=== PATIENT | female | born 2000 | race Hispanic/Latino ===

== ENCOUNTER 2019-01-06 02:01 | Emergency (ER) | payer SELFPAY ==
[~2019-01-06] VITALS: Ht 154.9 cm; Wt 58.7 kg
--- OUTSIDE RECORDS SUMMARY | 2019-01-06 02:06 | XMS REPORT | Summary of Care ---
Author Author [facility] Organization [facility] Address Unknown Phone Unavailable Encounter HQ Iza(FIN) [id number] Date(s): 01/23/18 - 01/24/18 [facility] [address] [place] [address]- [phone] Encounter Diagnosis Acute UTI (Discharge Diagnosis) - 01/23/18 BV (bacterial vaginosis) (Discharge Diagnosis) - 01/23/18 Discharge Disposition: Home or Self Care Attending Physician: Ramiro Hernandez MD Vital Signs 1 2 3 Most recent to oldest [Reference Range]: 154.94 cm (01/23/18 6:14 PM) Height 98.1 DegF (01/23/18 10:11 PM) 97.8 DegF (01/23/18 6:14 PM) Temperature Oral [96.4-99.1 DegF] 110/72 mmHg (01/24/18 12:06 AM) 102/64 mmHg (01/23/18 10:11 PM) 106/70 mmHg (01/23/18 6:14 PM) Blood Pressure [90-140/60-90 mmHg] 18 BRMIN (01/24/18 12:06 AM) 18 BRMIN (01/23/18 10:11 PM) 18 BRMIN (01/23/18 6:14 PM) Respiratory Rate [14-20 BRMIN] 74 bpm (01/24/18 12:06 AM) 81 bpm (01/23/18 10:11 PM) 74 bpm (01/23/18 6:14 PM) Peripheral Pulse Rate [60-100 bpm] 51.364 kg (01/23/18 6:14 PM) Weight 21.4 m2 (01/23/18 6:14 PM) Body Mass Index Problem List No data available for this section Allergies, Adverse Reactions, Alerts No data available for this section Medications cephalexin 500 mg oral tablet 500 mg=1 tab, PO, TID, X 7 day, # 21 tab, 0 Refill(s) Start Date: 01/23/18 Stop Date: 01/30/18 Status: Ordered Flagyl 500 mg oral tablet 500 mg=1 tab, PO, BID, X 7 day, # 14 tab, 0 Refill(s) Start Date: 01/23/18 Stop Date: 01/30/18 Status: Ordered Results ELECTROLYTES Most recent to 1 oldest [Reference Range]: Sodium Lvl [135-145 140 mEq/L mEq/L] (01/23/18 6:37 PM) Potassium Lvl 4.0 mEq/L [3.5-5.1 mEq/L] (01/23/18 6:37 PM) Chloride Lvl [95-109 103 mEq/L mEq/L] (01/23/18 6:37 PM) CO2 [24-32 mEq/L] 28 mEq/L (01/23/18 6:37 PM) AGAP [10.0-20.0 13.0 mEq/L mEq/L] (01/23/18 6:37 PM) CHEM PANEL Most recent to 1 oldest [Reference Range]: Creatinine Lvl 0.58 mg/dL [0.50-1.40 mg/dL] (01/23/18 6:37 PM) eGFR 134 mL/min/1.73m2 1 *NA* (01/23/18 6:37 PM) BUN [7-22 mg/dL] 11 mg/dL (01/23/18 6:37 PM) B/C Ratio [6-25] 19 (01/23/18 6:37 PM) Glucose Lvl [70-99 93 mg/dL mg/dL] (01/23/18 6:37 PM) Total Protein 7.9 g/dL [6.4-8.4 g/dL] (01/23/18 6:37 PM) Albumin Lvl [3.5-5.0 3.7 g/dL g/dL] (01/23/18 6:37 PM) Globulin [2.7-4.2 4.2 g/dL g/dL] (01/23/18 6:37 PM) A/G Ratio [0.7-1.6] 0.9 (01/23/18 6:37 PM) Calcium Lvl 9.2 mg/dL [8.5-10.5 mg/dL] (01/23/18 6:37 PM) ALT [0-65 unit/L] 21 unit/L (01/23/18 6:37 PM) AST [0-37 unit/L] 16 unit/L (01/23/18 6:37 PM) Alk Phos [39-136 64 unit/L unit/L] (01/23/18 6:37 PM) Bili Total [0.2-1.3 0.2 mg/dL mg/dL] (01/23/18 6:37 PM) Lipase Lvl [73-393 151 unit/L unit/L] (01/23/18 6:37 PM) 1Result Comment: The eGFR is calculated using the CKD-EPI formula. In most young, healthy individuals the eGFR will be >90 mL/min/1.73m2. The eGFR declines with age. An eGFR of 60-89 may be normal in some populations, particularly the elderly, for whom the CKD-EPI formula has not been extensively validated. Use of the eGFR is not recommended in the following populations: Individuals with unstable creatinine concentrations, including patients and those with serious co-morbid conditions. Patients with extremes in muscle mass or diet. The data above are obtained from the National Kidney Disease Education Program ( NKDEP) which additionally recommends that when the eGFR is used in patients with extremes of body mass index for purposes of drug dosing, the eGFR should be mul tiplied by the estimated BMI. URINE CHEM Most recent to 1 oldest [Reference Range]: U Preg [Negative] Negative (01/23/18 6:33 PM) URINE AND STOOL Most recent to 1 oldest [Reference Range]: UA Turbidity [Clear] Slight *ABN* (01/23/18 6:33 PM) UA Color [Yellow] Yellow *NA* (01/23/18 6:33 PM) UA pH [5.0-8.0] 5.0 (01/23/18 6:33 PM) UA Spec Grav 1.017 [<=1.030] (01/23/18 6:33 PM) UA Glucose [Negative Negative mg/dL mg/dL] *NA* (01/23/18 6:33 PM) UA Blood [Negative] Negative (01/23/18 6:33 PM) UA Ketones [Negative Negative mg/dL mg/dL] *NA* (01/23/18 6:33 PM) UA Protein [Negative Negative mg/dL mg/dL] (01/23/18 6:33 PM) UA Urobilinogen <=1.0 mg/dL [0.1-1.0 mg/dL] *NA* (01/23/18 6:33 PM) UA Bili [Negative] Negative *NA* (01/23/18 6:33 PM) UA Leuk Est Trace [Negative] *ABN* (01/23/18 6:33 PM) UA Nitrite Positive [Negative] *ABN* (01/23/18 6:33 PM) UA WBC [0-5 /HPF] 17 /HPF *HI* (01/23/18 6:33 PM) UA RBC [0-2 /HPF] 3 /HPF *HI* (01/23/18 6:33 PM) UA Bacteria [None Moderate /HPF Seen /HPF] *ABN* (01/23/18 6:33 PM) UA Sq Epi [Few /LPF] Occasional /LPF *NA* (01/23/18 6:33 PM) UA Mucus [None Seen Few /LPF /LPF] *NA* (01/23/18 6:33 PM) HEMATOLOGY Most recent to 1 oldest [Reference Range]: WBC [3.7-10.4 K/CMM] 8.6 K/CMM (01/23/18 6:37 PM) RBC [4.20-5.40 4.44 M/CMM M/CMM] (01/23/18 6:37 PM) Hgb [12.0-16.0 g/dL] 12.0 g/dL (01/23/18 6:37 PM) Hct [36.0-48.0 %] 36.0 % (01/23/18 6:37 PM) MCV [80.0-98.0 fL] 81.2 fL (01/23/18 6:37 PM) MCH [27.0-31.0 pg] 27.1 pg (01/23/18 6:37 PM) MCHC [32.0-36.0 33.3 g/dL g/dL] (01/23/18 6:37 PM) RDW [11.5-14.5 %] 17.0 % *HI* (01/23/18 6:37 PM) MPV [7.4-10.4 fL] 9.3 fL (01/23/18 6:37 PM) Platelet [133-450 252 K/CMM K/CMM] (01/23/18 6:37 PM) Segs [45.0-75.0 %] 60.4 % (01/23/18 6:37 PM) Lymphocytes 28.0 % [20.0-40.0 %] (01/23/18 6:37 PM) Monocytes [2.0-12.0 6.4 % %] (01/23/18 6:37 PM) Eosinophils [0.0-4.0 3.9 % %] (01/23/18 6:37 PM) Basophils [0.0-1.0 1.3 % %] *HI* (01/23/18 6:37 PM) Segs-Bands # 5.2 K/CMM [1.5-8.1 K/CMM] (01/23/18 6:37 PM) Lymphocytes # 2.4 K/CMM [1.0-5.5 K/CMM] (01/23/18 6:37 PM) Monocytes # [0.0-0.8 0.5 K/CMM K/CMM] (01/23/18 6:37 PM) Eosinophils # 0.3 K/CMM [0.0-0.5 K/CMM] (01/23/18 6:37 PM) Basophils # [0.0-0.2 0.1 K/CMM K/CMM] (01/23/18 6:37 PM) MOLECULAR DIAGNOSTIC Most recent to 1 oldest [Reference Range]: Source APTIMA Endocervix *NA* (01/23/18 11:15 PM) N gonorrhea by Amp Negative Det (APTIMA) *NA* [Negative] (01/23/18 11:15 PM) C trachomatis by Amp Negative Det (APTIMA) *NA* [Negative] (01/23/18 11:15 PM) Immunizations No data available for this section Procedures No data available for this section Social History Social History Type Response Smoking Status Never smoker; Exposure to Tobacco Smoke None; Cigarette Smoking Last 365 Days No; Reg Smoking Cessation Counseling No entered on: 01/23/18 Assessment and Plan No data available for this section
--- OUTSIDE RECORDS SUMMARY | 2019-01-06 02:06 | XMS REPORT | Summary of Care ---
Author Author [facility] Organization [facility] Address Unknown Phone Unavailable Encounter HQ Iza(CARLOS ALBERTO) [id number] Date(s): 03/20/18 - 03/20/18 [facility] [address] [place] [address]- [phone] Encounter Diagnosis Nausea/vomiting in (Discharge Diagnosis) - 03/20/18 UTI in (Discharge Diagnosis) - 03/20/18 Discharge Disposition: Home or Self Care Attending Physician: Rogerio Contreras MD Vital Signs Most recent to 1 2 oldest [Reference Range]: Height 154.94 cm (03/20/18 7:24 PM) Temperature Oral 98.7 DegF 98.6 DegF [96.4-99.1 DegF] (03/20/18 11:13 PM) (03/20/18 7:24 PM) Blood Pressure 93/52 mmHg 101/63 mmHg [90-140/60-90 mmHg] (03/20/18 11:13 PM) (03/20/18 7:24 PM) Respiratory Rate 18 BRMIN 18 BRMIN [14-20 BRMIN] (03/20/18 11:13 PM) (03/20/18 7:24 PM) Peripheral Pulse 77 bpm 84 bpm Rate [60-100 bpm] (03/20/18 11:13 PM) (03/20/18 7:24 PM) Weight 49.091 kg (03/20/18 7:24 PM) Body Mass Index 20.45 m2 (03/20/18 7:24 PM) Problem List No data available for this section Allergies, Adverse Reactions, Alerts Substance Reaction Severity Status NKDA Active Medications Benadryl 12.5 mg, Route: IVP, ONCE, Dosing Weight 49.091, kg, Priority: STAT, Start date: 03/20/18 21:50:00 CDT, Stop date: 03/20/18 21:50:00 CDT Start Date: 03/20/18 Stop Date: 03/20/18 Status: Completed Diclegis 10 mg-10 mg oral delayed release tablet 1 tab, PO, Bedtime, # 14 tab, 0 Refill(s) Start Date: 03/20/18 Stop Date: 04/03/18 Status: Ordered Macrobid 100 mg oral capsule 100 mg=1 cap, PO, BID, X 7 day, # 14 cap, 0 Refill(s) Start Date: 03/20/18 Stop Date: 03/27/18 Status: Ordered Reglan 10 mg, Route: PO, Drug form: TAB, ONCE, Dosing Weight 49.091, kg, Priority: STAT , Start date: 03/20/18 21:50:00 CDT, Stop date: 03/20/18 21:50:00 CDT Start Date: 03/20/18 Stop Date: 03/20/18 Status: Completed Saline Flush 0.9% 10 mL, Route: IVP, Drug Form: INJ, Dosing Weight 51.364, kg, PRN, PRN Line Flush , Start date: 03/20/18 19:28:00 CDT, Duration: 30 day, Stop date: 04/19/18 19:27 :00 CDT Notes: (Same as: BD Posiflush) Start Date: 03/20/18 Stop Date: 03/21/18 Status: Discontinued Sodium Chloride 0.9% (Bolus) IV 1,000 mL, Infuse Over: 1 hr, Route: IV, ONCE, Priority: STAT, Dosing Weight 49.0 91 kg, Start date: 03/20/18 21:50:00 CDT, Stop date: 03/20/18 21:50:00 CDT Start Date: 03/20/18 Stop Date: 03/20/18 Status: Completed Results BLOOD BANK RESULTS Most recent to 1 oldest [Reference Range]: ABO/Rh A POS *Unknown* (03/20/18 7:48 PM) ELECTROLYTES Most recent to 1 oldest [Reference Range]: Sodium Lvl [135-145 140 mEq/L mEq/L] (03/20/18 7:48 PM) Potassium Lvl 3.9 mEq/L [3.5-5.1 mEq/L] (03/20/18 7:48 PM) Chloride Lvl [95-109 108 mEq/L mEq/L] (03/20/18 7:48 PM) CO2 [24-32 mEq/L] 22 mEq/L *LOW* (03/20/18 7:48 PM) AGAP [10.0-20.0 13.9 mEq/L mEq/L] (03/20/18 7:48 PM) CHEM PANEL Most recent to 1 oldest [Reference Range]: Creatinine Lvl 0.58 mg/dL [0.50-1.40 mg/dL] (03/20/18 7:48 PM) eGFR 134 mL/min/1.73m2 1 *NA* (03/20/18 7:48 PM) BUN [7-22 mg/dL] 7 mg/dL (03/20/18 7:48 PM) B/C Ratio [6-25] 12 (03/20/18 7:48 PM) Glucose Lvl [70-99 136 mg/dL mg/dL] *HI* (03/20/18 7:48 PM) Total Protein 8.3 g/dL [6.4-8.4 g/dL] (03/20/18 7:48 PM) Albumin Lvl [3.5-5.0 4.1 g/dL g/dL] (03/20/18 7:48 PM) Globulin [2.7-4.2 4.2 g/dL g/dL] (03/20/18 7:48 PM) A/G Ratio [0.7-1.6] 1.0 (03/20/18 7:48 PM) Calcium Lvl 9.2 mg/dL [8.5-10.5 mg/dL] (03/20/18 7:48 PM) ALT [0-65 unit/L] 20 unit/L (03/20/18 7:48 PM) AST [0-37 unit/L] 15 unit/L (03/20/18 7:48 PM) Alk Phos [39-136 46 unit/L unit/L] (03/20/18 7:48 PM) Bili Total [0.2-1.3 0.3 mg/dL mg/dL] (03/20/18 7:48 PM) 1Result Comment: The eGFR is calculated [...] be mul tiplied by the estimated BMI. ENDOCRINOLOGY Most recent to 1 oldest [Reference Range]: hCG Tot >200,000 mIU/mL (03/20/18 7:48 PM) URINE AND STOOL Most recent to 1 oldest [Reference Range]: UA Turbidity [Clear] Marked *ABN* (03/20/18 8:24 PM) UA Color [Yellow] Yellow *NA* (03/20/18 8:24 PM) UA pH [5.0-8.0] 5.0 (03/20/18 8:24 PM) UA Spec Grav 1.030 [<=1.030] (03/20/18 8:24 PM) UA Glucose [Negative 50 mg/dL mg/dL] *ABN* (03/20/18 8:24 PM) UA Blood [Negative] Negative (03/20/18 8:24 PM) UA Ketones [Negative 20 mg/dL mg/dL] *ABN* (03/20/18 8:24 PM) UA Protein [Negative 30 mg/dL mg/dL] *ABN* (03/20/18 8:24 PM) UA Urobilinogen 4.0 mg/dL [0.1-1.0 mg/dL] *HI* (03/20/18 8:24 PM) UA Bili [Negative] Negative *NA* (03/20/18 8:24 PM) UA Leuk Est Moderate [Negative] *ABN* (03/20/18 8:24 PM) UA Nitrite Negative [Negative] (03/20/18 8:24 PM) UA WBC [0-5 /HPF] 41 /HPF *HI* (03/20/18 8:24 PM) UA Bacteria [None Occasional /HPF Seen /HPF] *NA* (03/20/18 8:24 PM) UA Sq Epi [Few /LPF] Few /LPF *NA* (03/20/18 8:24 PM) UA Amorph Urszula [None Moderate /HPF Seen /HPF] *ABN* (03/20/18 8:24 PM) UA Mucus [None Seen Many /LPF /LPF] *ABN* (03/20/18 8:24 PM) HEMATOLOGY Most recent to 1 oldest [Reference Range]: WBC [3.7-10.4 K/CMM] 8.1 K/CMM (03/20/18 7:48 PM) RBC [4.20-5.40 4.42 M/CMM M/CMM] (03/20/18 7:48 PM) Hgb [12.0-16.0 g/dL] 12.4 g/dL (03/20/18 7:48 PM) Hct [36.0-48.0 %] 37.1 % (03/20/18 7:48 PM) MCV [80.0-98.0 fL] 83.8 fL (03/20/18 7:48 PM) MCH [27.0-31.0 pg] 27.9 pg (03/20/18 7:48 PM) MCHC [32.0-36.0 33.3 g/dL g/dL] (03/20/18 7:48 PM) RDW [11.5-14.5 %] 15.4 % *HI* (03/20/18 7:48 PM) MPV [7.4-10.4 fL] 9.7 fL (03/20/18 7:48 PM) Platelet [133-450 204 K/CMM K/CMM] (03/20/18 7:48 PM) Segs [45.0-75.0 %] 76.5 % *HI* (03/20/18 7:48 PM) Lymphocytes 15.8 % [20.0-40.0 %] *LOW* (03/20/18 7:48 PM) Monocytes [2.0-12.0 6.0 % %] (03/20/18 7:48 PM) Eosinophils [0.0-4.0 1.1 % %] (03/20/18 7:48 PM) Basophils [0.0-1.0 0.6 % %] (03/20/18 7:48 PM) Segs-Bands # 6.2 K/CMM [1.5-8.1 K/CMM] (03/20/18 7:48 PM) Lymphocytes # 1.3 K/CMM [1.0-5.5 K/CMM] (03/20/18 7:48 PM) Monocytes # [0.0-0.8 0.5 K/CMM K/CMM] (03/20/18 7:48 PM) Eosinophils # 0.1 K/CMM [0.0-0.5 K/CMM] (03/20/18 7:48 PM) Basophils # [0.0-0.2 0.1 K/CMM K/CMM] (03/20/18 7:48 PM) MOLECULAR DIAGNOSTIC Most recent to 1 oldest [Reference Range]: Source APTIMA Urine *NA* (03/20/18 8:24 PM) N gonorrhea by Amp Negative Det (APTIMA) *NA* [Negative] (03/20/18 8:24 PM) C trachomatis by Amp Negative Det (APTIMA) *NA* [Negative] (03/20/18 8:24 PM) Immunizations No data available for this section Procedures No data available for this section Social History Social History Type Response Smoking Status Never smoker; Exposure to Tobacco Smoke None; Cigarette Smoking Last 365 Days No; Reg Smoking Cessation Counseling No entered on: 03/20/18 Assessment and Plan No data available for this section
--- OUTSIDE RECORDS SUMMARY | 2019-01-06 02:06 | XMS REPORT | Summary of Care ---
Author Author [facility] Organization [facility] Address Unknown Phone Unavailable Encounter HQ Iza(FIN) [id number] Date(s): 01/23/18 - 01/24/18 [facility] [address] [place] [address]- Encounter Diagnosis Acute UTI (Discharge Diagnosis) - [...] Start Date: 01/23/18 Stop Date: 01/30/18 Status: Completed Flagyl 500 mg oral tablet 500 mg=1 tab, PO, BID, X 7 day, # 14 tab, 0 Refill(s) Start Date: 01/23/18 Stop Date: 01/30/18 Status: Completed Results ELECTROLYTES Most recent to 1 oldest [...]
--- OUTSIDE RECORDS SUMMARY | 2019-01-06 02:06 | XMS REPORT | Summary of Care ---
Author Author [facility] Organization [facility] Address Unknown Phone Unavailable Encounter HQ Iza(CARLOS ALBERTO) [id number] Date(s): 06/09/18 - 06/09/18 [facility] [address] [place] [address]- Encounter Diagnosis UTI (urinary tract infection) during (Discharge Diagnosis) - 06/09/18 21 weeks gestation of (Discharge Diagnosis) - 06/09/18 Unspecified infection of urinary tract in , second trimester (Final) - 06/14/18 Late vomiting of (Final) - 21 weeks gestation of (Final) - Discharge Disposition: Home or Self Care Attending Physician: Yanna Alvarez MD Vital Signs 1 2 3 Most recent to oldest [Reference Range]: 154.94 cm (06/09/18 6:28 AM) Height 98.3 DegF (06/09/18 6:28 AM) Temperature Oral [96.4-99.1 DegF] 103/58 mmHg (06/09/18 8:00 AM) 107/66 mmHg (06/09/18 7:30 AM) 121/75 mmHg (06/09/18 7:00 AM) Blood Pressure [90-140/60-90 mmHg] 18 BRMIN (06/09/18 6:28 AM) Respiratory Rate [14-20 BRMIN] 89 bpm (06/09/18 6:28 AM) Peripheral Pulse Rate [60-100 bpm] 48.182 kg (06/09/18 6:28 AM) Weight 20.07 m2 (06/09/18 6:28 AM) Body Mass Index Problem List Condition Effective Dates Status Health Status Informant (Confirmed) 07/13/18 - 10/12/18 Resolved Allergies, Adverse Reactions, Alerts Substance Reaction Severity Status NKDA Active Medications Lactated Ringers (Bolus) IV 1,000 mL, 1,000 ml/hr, Infuse Over: 1 hr, Route: IV, 1,000, Drug form: INJ, ONCE , Priority: STAT, Dosing Weight 48.182 kg, Start date: 06/09/18 6:43:00 CDT, Sto p date: 06/09/18 6:43:00 CDT Start Date: 06/09/18 Stop Date: 06/09/18 Status: Completed Lactated Ringers IV 1,000 mL 1,000 mL, Rate: 125 ml/hr, Infuse over: 8 hr, Route: IV, Dosing Weight 48.182 kg , Total Volume: 1,000, Start date: 06/09/18 6:43:00 CDT, Duration: 30 day, Stop date: 07/09/18 6:42:00 CDT, 1.45, m2 Start Date: 06/09/18 Stop Date: 06/09/18 Status: Discontinued Macrobid 100 mg oral capsule 100 mg=1 cap, PO, BID, X 14 day, # 28 cap, 0 Refill(s) Start Date: 06/09/18 Stop Date: 06/23/18 Status: Completed Zofran 4 mg, 2 mL, Route: IVP, Drug form: INJ, ONCE, Dosing Weight 48.182, kg, Priority : STAT, Start date: 06/09/18 7:47:00 CDT, Stop date: 06/09/18 7:47:00 CDT Notes: (Same as: Zofran) MEDICATION WASTE Product Size: 4 mgProduct Was angela: ___ mg Start Date: 06/09/18 Stop Date: 06/09/18 Status: Completed Results ELECTROLYTES Most recent to 1 oldest [Reference Range]: Sodium Lvl [135-145 138 mEq/L mEq/L] (06/09/18 6:46 AM) Potassium Lvl 3.9 mEq/L [3.5-5.1 mEq/L] (06/09/18 6:46 AM) Chloride Lvl [95-109 107 mEq/L mEq/L] (06/09/18 6:46 AM) CO2 [24-32 mEq/L] 23 mEq/L *LOW* (06/09/18 6:46 AM) AGAP [10.0-20.0 11.9 mEq/L mEq/L] (06/09/18 6:46 AM) CHEM PANEL Most recent to 1 oldest [Reference Range]: Creatinine Lvl 0.38 mg/dL [0.50-1.40 mg/dL] *LOW* (06/09/18 6:46 AM) eGFR 154 mL/min/1.73m2 1 *NA* (06/09/18 6:46 AM) BUN [7-22 mg/dL] 6 mg/dL *LOW* (06/09/18 6:46 AM) B/C Ratio [6-25] 16 (06/09/18 6:46 AM) Glucose Lvl [70-99 77 mg/dL mg/dL] (06/09/18 6:46 AM) Total Protein 6.8 g/dL [6.4-8.4 g/dL] (06/09/18 6:46 AM) Albumin Lvl [3.5-5.0 3.0 g/dL g/dL] *LOW* (06/09/18 6:46 AM) Globulin [2.7-4.2 3.8 g/dL g/dL] (06/09/18 6:46 AM) A/G Ratio [0.7-1.6] 0.8 (06/09/18 6:46 AM) Calcium Lvl 8.6 mg/dL [8.5-10.5 mg/dL] (06/09/18 6:46 AM) ALT [0-65 unit/L] 22 unit/L (06/09/18 6:46 AM) AST [0-37 unit/L] 11 unit/L (06/09/18 6:46 AM) Alk Phos [39-136 64 unit/L unit/L] (06/09/18 6:46 AM) Bili Total [0.2-1.3 0.3 mg/dL mg/dL] (06/09/18 6:46 AM) Amylase Lvl [25-115 71 unit/L unit/L] (06/09/18 6:46 AM) Lipase Lvl [73-393 112 unit/L unit/L] (06/09/18 6:46 AM) 1Result Comment: The eGFR is calculated using [...] mul tiplied by the estimated BMI. URINE AND STOOL Most recent to 1 oldest [Reference Range]: UA Turbidity [Clear] Marked *ABN* (06/09/18 6:46 AM) UA Color [Yellow] Yellow *NA* (06/09/18 6:46 AM) UA pH [5.0-8.0] 7.0 (06/09/18 6:46 AM) UA Spec Grav 1.012 [<=1.030] (06/09/18 6:46 AM) UA Glucose [Negative Negative mg/dL mg/dL] *NA* (06/09/18 6:46 AM) UA Blood [Negative] Large *ABN* (06/09/18 6:46 AM) UA Ketones [Negative Negative mg/dL mg/dL] *NA* (06/09/18 6:46 AM) UA Protein [Negative 100 mg/dL mg/dL] *ABN* (06/09/18 6:46 AM) UA Urobilinogen <=1.0 mg/dL [0.1-1.0 mg/dL] *NA* (06/09/18 6:46 AM) UA Bili [Negative] Negative *NA* (06/09/18 6:46 AM) UA Leuk Est Moderate [Negative] *ABN* (06/09/18 6:46 AM) UA Nitrite Positive [Negative] *ABN* (06/09/18 6:46 AM) UA WBC [0-5 /HPF] 56 /HPF *HI* (06/09/18 6:46 AM) UA RBC [0-2 /HPF] 113 /HPF *HI* (06/09/18 6:46 AM) UA Bacteria [None Moderate /HPF Seen /HPF] *ABN* (06/09/18 6:46 AM) UA Sq Epi [Few /LPF] Occasional /LPF *NA* (06/09/18 6:46 AM) UA Amorph Urszula [None Occasional /HPF Seen /HPF] *NA* (06/09/18 6:46 AM) UA Mucus [None Seen Few /LPF /LPF] *NA* (06/09/18 6:46 AM) HEMATOLOGY Most recent to 1 oldest [Reference Range]: WBC [3.7-10.4 K/CMM] 14.2 K/CMM *HI* (06/09/18 6:46 AM) RBC [4.20-5.40 3.53 M/CMM M/CMM] *LOW* (06/09/18 6:46 AM) Hgb [12.0-16.0 g/dL] 10.4 g/dL *LOW* (06/09/18 6:46 AM) Hct [36.0-48.0 %] 31.1 % *LOW* (06/09/18 6:46 AM) MCV [80.0-98.0 fL] 87.9 fL (06/09/18 6:46 AM) MCH [27.0-31.0 pg] 29.4 pg (06/09/18 6:46 AM) MCHC [32.0-36.0 33.4 g/dL g/dL] (06/09/18 6:46 AM) RDW [11.5-14.5 %] 15.0 % *HI* (06/09/18 6:46 AM) MPV [7.4-10.4 fL] 9.6 fL (06/09/18 6:46 AM) Platelet [133-450 205 K/CMM K/CMM] (06/09/18 6:46 AM) Segs [45.0-75.0 %] 79.3 % *HI* (06/09/18 6:46 AM) Lymphocytes 13.8 % [20.0-40.0 %] *LOW* (06/09/18 6:46 AM) Monocytes [2.0-12.0 5.6 % %] (06/09/18 6:46 AM) Eosinophils [0.0-4.0 0.9 % %] (06/09/18 6:46 AM) Basophils [0.0-1.0 0.4 % %] (06/09/18 6:46 AM) Neutrophils # 11.3 K/CMM [1.5-8.1 K/CMM] *HI* (06/09/18 6:46 AM) Lymphocytes # 2.0 K/CMM [1.0-5.5 K/CMM] (06/09/18 6:46 AM) Monocytes # [0.0-0.8 0.8 K/CMM K/CMM] (06/09/18 6:46 AM) Eosinophils # 0.1 K/CMM [0.0-0.5 K/CMM] (06/09/18 6:46 AM) Basophils # [0.0-0.2 0.1 K/CMM K/CMM] (06/09/18 6:46 AM) Microbiology Reports TEST: Culture: Urine STATUS: Auth (Verified) BODY SITE: SOURCE: Urine, Clean Catch COLLECTED DATE/TIME: 06/09/18 6:46 AM FINAL REPORT >100,000 CFU/mL Escherichia coli . <10,000 CFU/mL Skin Florinda ORGANISM:Escherichia coli Immunizations Given and Recorded Vaccine Date Status Refusal Reason measles/mumps/rubella virus vaccine 10/14/18 Given diphtheria/pertussis, acel/tetanus adult 10/14/18 Given Not Given Vaccine Date Status Refusal Reason influenza virus vaccine, inactivated 07/15/18 Not Given Patient Refuses Procedures No data available for this section Social History Social History Type Response Substance Abuse Use: None. Alcohol Never Smoking Status Never smoker; Exposure to Tobacco Smoke None; Cigarette Smoking Last 365 Days No; Reg Smoking Cessation Counseling No entered on: 10/11/18 Assessment and Plan No data available for this section
--- OUTSIDE RECORDS SUMMARY | 2019-01-06 02:06 | XMS REPORT | Continuity of Care Document ---
Author Author [facility] Interface Address Unknown Phone Unavailable Problems Problem Status Onset Date Classification Date Reported Comments Source INDUCTION Active 10/11/2018 [facility] INDUCTION Active 10/11/2018 [facility] CONTRACTIONS Active 09/30/2018 [facility] CONTRACTIONS Active 09/30/2018 [facility] Resolved 07/13/2018 Problem 12/27/2018 [facility] ABD PAIN Active 07/13/2018 [facility] 26 WEEKS GESTATION OF , ACUTE P Active 07/13/2018 [facility] Unspecified infection of urinary tract in , second trimester 06/15/2018 12/27/2018 [facility] UTI during 06/09/2018 12/27/2018 [facility] 21 weeks gestation of 06/09/2018 12/27/2018 [facility] ABDOMINAL PAIN Active 06/09/2018 [facility] Nausea/vomiting in 03/20/2018 03/23/2018 [facility] UTI in 03/20/2018 03/23/2018 [facility] VOMITING BLOOD Active 03/20/2018 [facility] Acute UTI 01/23/2018 02/03/2018 [facility] BV 01/23/2018 02/03/2018 [facility] Late vomiting of 12/27/2018 [facility] 26 WEEKS GESTATION OF Active [facility] FAILED INDUCTION OF LABOR, UNSPECIFIED Active [facility] INFECTIONS OF KIDNEY IN , SECON Active [facility] Medications Medication Details Route Status Patient Instructions Ordering Provider Order Date Source ibuprofen 600 mg oral tablet 600 mg=1 tab, PO, Q6Hnow, # 30 tab, 0 Refill(s) Inactive 10/14/2018 [facility] Ibuprofen 400 MG Oral Tablet 800 mg, 1 tab, Route: PO, Drug form: TAB, Q8H, Dosing Weight 65.455, kg, PRN Pain Score 1-3, Start date: 10/14/18 6:09:00 [employer], Duration: 30 day, Stop date: 11/13/18 6:08:00 CSTNotes: (Same as: Motrin) "Do Not Crush" Take with food. Inactive 10/14/2018 [facility] Multivitamins oral tablet 1 tab, Route: PO, Drug Form: TAB, Dosing Weight 65.455, kg, Daily, Start date: 10/13/18 9:00:00 [employer], Duration: 30 day, Stop date: 11/11/18 9:00:00 [employer] No Longer Active 10/13/2018 [facility] Acetaminophen 325 MG / Hydrocodone Bitartrate 10 MG Oral Tablet [Nolan 10/325] 1 tab, Route: PO, Drug Form: TAB, Dosing Weight 65.455, kg, Q4H, PRN Pain Score 6-10, Start date: 10/12/18 21:07:00 [employer], Duration: 30 day, Stop date: 11/11/18 21:06:00 CSTNotes: Do not exceed 4gm/day of acetaminophen. (Same as: Nolan 325/10) No Longer Active 10/13/2018 [facility] Acetaminophen 325 MG / Hydrocodone Bitartrate 5 MG Oral Tablet [Nolan 5/325] 1 tab, Route: PO, Drug Form: TAB, Dosing Weight 65.455, kg, Q4H, PRN Pain Score 1-5, Start date: 10/12/18 21:07:00 [employer], Duration: 30 day, Stop date: 11/11/18 21:06:00 CSTNotes: (Same as: Nolan 325/5) Do not exceed 4gm/day of acetaminophen. No Longer Active 10/13/2018 [facility] Ibuprofen 600 mg, 1 tab, Route: PO, Drug form: TAB, Q6Hnow, Dosing Weight 65.455, kg, Start date: 10/12/18 19:00:00 [employer], Duration: 30 day, Stop date: 11/11/18 15:00:00 CSTNotes: (Same as: Motrin) "Do Not Crush" Take with food. No Longer Active 10/13/2018 [facility] Methylergonovine 0.2 mg, 1 mL, Route: IM, Drug form: INJ, PRN, Dosing Weight 65.455, kg, PRN Other -See Comment, Start date: 10/12/18 18:41:00 [employer], Duration: 30 day, Stop date: 11/11/18 18:40:00 CSTNotes: (Same as:Methergine) No Longer Active 10/13/2018 [facility] Lactated Ringers IV 1,000 mL 1,000 mL, Rate: 100 ml/hr, Infuse over: 10 hr, Route: IV, Dosing Weight 65.455 kg, Total Volume: 1,000, Start date: 10/12/18 18:41:00 [employer], Duration: 30 day, Stop date: 11/11/18 18:40:00 [employer], 1.7, m2 No Longer Active 10/13/2018 [facility] Ondansetron 4 mg, 2 mL, Route: IVP, Drug form: INJ, Q8H, Dosing Weight 65.455, kg, PRN Nausea & Vomiting, Start date: 10/12/18 18:41:00 [employer], Duration: 30 day, Stop date: 11/11/18 18:40:00 CSTNotes: (Same as: Zofran) MEDICATION WASTE Product Size: 4 mg Product Wasted: ___ mg No Longer Active 10/13/2018 [facility] Oxytocin 30 unit, 500 mL, Rate: 42 ml/hr, Infuse over: 11.9 hr, Dosing Weight 65.455, kg, Route: IV, Total Volume: 500 mL, Start date: 10/12/18 18:41:00 [employer], Duration: 2 day, Stop date: 10/14/18 18:40:00 [employer], Replace Every: 11.9 hr No Longer Active 10/13/2018 [facility] Bisacodyl 15 mg, 3 tab, Route: PO, Drug form: ECTAB, Daily, Dosing Weight 65.455, kg, PRN Other -See Comment, Start date: 10/12/18 18:41:00 [employer], Duration: 30 day, Stop date: 11/11/18 18:40:00 CSTNotes: (Same As: Dulcolax, Correctol) (Do Not Crush) "Do Not Crush" No Longer Active 10/13/2018 [facility] Docusate 100 mg, 1 cap, Route: PO, Drug form: CAP, BID, Dosing Weight 65.455, kg, PRN Constipation, Start date: 10/12/18 18:41:00 [employer], Duration: 30 day, Stop date: 11/11/18 18:40:00 CSTNotes: (Same as: Colace) (Do Not Crush) No Longer Active 10/13/2018 [facility] Benzocaine 200 MG/ML Topical [place] [Dermoplast] 1 spray, Route: TOP, PRN, Drug form: SPRY, PRN Irritation, Start date: 10/12/18 18:41:00 [employer], Duration: 30 day, Stop date: 11/11/18 18:40:00 CSTNotes: (Same As: Dermoplast) WASTE: Aerosol - Return to Pharmacy FOR EXTERNAL USE ONLY No Longer Active 10/13/2018 [facility] zolpidem 5 mg, 1 tab, Route: PO, Drug form: TAB, Bedtime, Dosing Weight 65.455, kg, PRN Sleep, Start date: 10/12/18 18:41:00 [employer], Duration: 30 day, Stop date: 11/11/18 18:40:00 CSTNotes: (Same As: Ambien) No Longer Active 10/13/2018 [facility] lanolin topical 1 appl, Route: TOP, PRN, Drug form: OINT, PRN Other -See Comment, Start date: 10/12/18 18:41:00 [employer], Duration: 30 day, Stop date: 11/11/18 18:40:00 [employer] No Longer Active 10/13/2018 [facility] Remove - dinoprostone (Cervidil) insert 1 ea, Route: VAG, Drug Form: INS, Dosing Weight 65.455, kg, ONCALL, Start date: 10/12/18 8:00:00 [employer], Duration: 30 day, Stop date: 11/11/18 7:59:00 CSTNotes: Vaginal insert: to be removed 1 hour prior to oxytocin administration or 12 hours after insertion. Inactive 10/12/2018 [facility] Oxytocin 30 unit, 500 mL, Rate: Titrate, Dosing Weight 65.455, kg, Route: IV, Total Volume: 500 mL, Start date: 10/12/18 6:34:00 [employer], Duration: 2 day, Stop date: 10/14/18 6:33:00 [employer], Replace Every: 24 hr Inactive 10/12/2018 [facility] Penicillin G 2,500,000 unit, 50 mL, Route: IVPB, Drug form: INJ, ABXQ4H, Dosing Weight 65.455, kg, Start date: 10/11/18 23:00:00 [employer], Duration: 30 day, Stop date: 11/10/18 19:00:00 [employer] No Longer Active 10/12/2018 [facility] Misoprostol 25 microgram, 1 ea, Route: VAG, Drug form: TAB, Q4H, Dosing Weight 65.455, kg, Start date: 10/11/18 20:00:00 [employer], Duration: 30 day, Stop date: 11/10/18 16:00:00 CSTNotes: (Same as:Cytotec) Take with food 25 microgram=1/4 tab of 100 microgram. Inactive 10/12/2018 [facility] Cervidil 10 mg, Route: VAG, Drug form: SUPP, ONCE, Dosing Weight 65.455, kg, Start date: 10/11/18 19:58:00 [employer], Stop date: 10/11/18 19:58:00 [employer] Inactive 10/12/2018 [facility] Penicillin G Potassium [id number] UNT/ML Injectable Solution 5,000,000 unit, Route: IVPB, ONCALL, Dosing Weight 65.455, kg, Start date: 10/11/18 19:00:00 [employer], Duration: 30 day, Stop date: 11/10/18 18:59:00 CSTNotes: (Same as: Pfizerpen) MEDICATION WASTE Product Size: 5,000,000 unit Product Wasted: ___ unit Inactive 10/12/2018 [facility] Misoprostol 1,000 microgram, 10 tab, Route: MO, Drug form: TAB, ONCALL, Dosing Weight 65.455, kg, Start date: 10/11/18 19:00:00 [employer], Duration: 1 doses or timesNotes: (Same as:Cytotec) Take with food No Longer Active 10/12/2018 [facility] Famotidine 20 mg, 2 mL, Route: IVP, Drug form: INJ, ONCALL, Dosing Weight 65.455, kg, Start date: 10/11/18 19:00:00 [employer], Duration: 30 day, Stop date: 11/10/18 18:59:00 CSTNotes: (Same as: Pepcid) Can be dilute in 5-10cc NS IVP: Slow IV push over at least 2 minutes. No Longer Active 10/12/2018 [facility] Methylergonovine 0.2 mg, 1 mL, Route: IM, Drug form: INJ, ONCALL, Dosing Weight 65.455, kg, Start date: 10/11/18 19:00:00 [employer], Duration: 30 day, Stop date: 11/10/18 18:59:00 CSTNotes: (Same as:Methergine) No Longer Active 10/12/2018 [facility] Citric Acid / sodium citrate 30 mL, Route: PO, Drug Form: SOLN, Dosing Weight 65.455, kg, ONCALL, Start date: 10/11/18 19:00:00 [employer], Duration: 30 day, Stop date: 11/10/18 18:59:00 CSTNotes: (Same As: Bicitra) No Longer Active 10/12/2018 [facility] Carboprost 250 microgram, 1 mL, Route: IM, Drug form: INJ, ONCALL, Dosing Weight 65.455, kg, Start date: 10/11/18 19:00:00 [employer], Duration: 30 day, Stop date: 11/10/18 18:59:00 CSTNotes: (Same As: Hemabate) No Longer Active 10/12/2018 [facility] Ondansetron 4 mg, 2 mL, Route: IVP, Drug form: INJ, Q8H, Dosing Weight 65.455, kg, PRN Nausea & Vomiting, Start date: 10/11/18 18:34:00 [employer], Duration: 30 day, Stop date: 11/10/18 18:33:00 CSTNotes: (Same as: Zofran) MEDICATION WASTE Product Size: 4 mg Product Wasted: ___ mg No Longer Active 10/12/2018 [facility] Terbutaline 0.25 mg, 0.25 mL, Route: SUB-Q, Drug form: INJ, PRN, Dosing Weight 65.455, kg, PRN Other -See Comment, Start date: 10/11/18 18:34:00 [employer], Duration: 1 doses or times, Stop date: Limited # of timesNotes: DO NOT USE IN CELL LINER AREA (Same As: Brethine) No Longer Active 10/12/2018 [facility] Lidocaine Hydrochloride 10 MG/ML Injectable Solution 200 mg, 20 mL, Route: PERCUT, Drug Form: INJ, Dosing Weight 65.455, kg, PRN, PRN Other -See Comment, Start date: 10/11/18 18:34:00 [employer], Duration: 1 doses or times, Stop date: Limited # of timesNotes: (Same as: Xylocaine) No Longer Active 10/12/2018 [facility] Butorphanol 1 mg, 1 mL, Route: IVP, Drug form: INJ, Q2H, Dosing Weight 65.455, kg, PRN Pain Score 4-6, Start date: 10/11/18 18:34:00 [employer], Duration: 30 day, Stop date: 11/10/18 18:33:00 CSTNotes: (Same As: Stadol) No Longer Active 10/12/2018 [facility] Acetaminophen 325 MG / Hydrocodone Bitartrate 5 MG Oral Tablet 1 tab, Route: PO, Drug Form: TAB, Dosing Weight 65.455, kg, Q4H, PRN Pain Score 4-6, Start date: 10/11/18 18:34:00 [employer], Duration: 30 day, Stop date: 11/10/18 18:33:00 CSTNotes: (Same as: Nolan 325/5) Do not exceed 4gm/day of acetaminophen. No Longer Active 10/12/2018 [facility] Ibuprofen 600 mg, 1 tab, Route: PO, Drug form: TAB, Q6H, Dosing Weight 65.455, kg, PRN Other -See Comment, Start date: 10/11/18 18:34:00 [employer], Duration: 30 day, Stop date: 11/10/18 18:33:00 CSTNotes: (Same as: Motrin) "Do Not Crush" Take with food. No Longer Active 10/12/2018 [facility] Lactated Ringers IV 1,000 mL 1,000 mL, Rate: 125 ml/hr, Infuse over: 8 hr, Route: IV, Dosing Weight 65.455 kg, Total Volume: 1,000, Start date: 10/11/18 18:34:00 [employer], Duration: 30 day, Stop date: 11/10/18 18:33:00 [employer], 1.7, m2 No Longer Active 10/12/2018 [facility] Oxytocin 30 unit, 500 mL, Rate: 42 ml/hr, Infuse over: 11.9 hr, Dosing Weight 65.455, kg, Route: IV, Total Volume: 500 mL, Start date: 10/11/18 18:34:00 [employer], Duration: 2 day, Stop date: 10/13/18 18:33:00 [employer], Replace Every: 11.9 hr No Longer Active 10/12/2018 [facility] Calcium Chloride 0.0014 MEQ/ML / Potassium Chloride 0.004 MEQ/ML / Sodium Chloride 0.103 MEQ/ML / Sodium Lactate 0.028 MEQ/ML Injectable Solution 1,000 mL, 1,000 ml/hr, Infuse Over: 1 hr, Route: IV, 1,000, Drug form: INJ, ONCE, Dosing Weight 65.455 kg, Start date: 10/11/18 18:34:00 [employer], Stop date: 10/11/18 18:34:00 [employer], Bolus for regional anesthesia per unit routine No Longer Active 10/12/2018 [facility] [place] 325 mg oral tablet 325 mg=1 tab, PO, TID, 0 Refill(s) No Longer Active 10/12/2018 [facility] PNV-Total oral capsule 1 cap, PO, Daily, 0 Refill(s) No Longer Active 10/12/2018 [facility] Nitrofurantoin 100 MG Oral Capsule [Macrobid] 100 mg=1 cap, PO, BID, X 14 day, # 28 cap, 0 Refill(s) No Longer Active 06/09/2018 [facility] Zofran 4 mg, 2 mL, Route: IVP, Drug form: INJ, ONCE, Dosing Weight 48.182, kg, Priority: STAT, Start date: 06/09/18 7:47:00 CDT, Stop date: 06/09/18 7:47:00 CDTNotes: (Same as: Zofran) MEDICATION WASTE Product Size: 4 mg Product Wasted: ___ mg Inactive 06/09/2018 [facility] Lactated Ringers IV 1,000 mL 1,000 mL, Rate: 125 ml/hr, Infuse over: 8 hr, Route: IV, Dosing Weight 48.182 kg, Total Volume: 1,000, Start date: 06/09/18 6:43:00 CDT, Duration: 30 day, Stop date: 07/09/18 6:42:00 CDT, 1.45, m2 Inactive 06/09/2018 [facility] Calcium Chloride 0.0014 MEQ/ML / Potassium Chloride 0.004 MEQ/ML / Sodium Chloride 0.103 MEQ/ML / Sodium Lactate 0.028 MEQ/ML Injectable Solution 1,000 mL, 1,000 ml/hr, Infuse Over: 1 hr, Route: IV, 1,000, Drug form: INJ, ONCE, Priority: STAT, Dosing Weight 48.182 kg, Start date: 06/09/18 6:43:00 CDT, Stop date: 06/09/18 6:43:00 CDT Inactive 06/09/2018 [facility] doxylamine succinate 10 MG / Pyridoxine Hydrochloride 10 MG Enteric Coated Tablet [Diclegis] 1 tab, PO, Bedtime, # 14 tab, 0 Refill(s) Active 03/21/2018 [facility] Nitrofurantoin 100 MG Oral Capsule [Macrobid] 100 mg=1 cap, PO, BID, X 7 day, # 14 cap, 0 Refill(s) Active 03/21/2018 [facility] Reglan 10 mg, Route: PO, Drug form: TAB, ONCE, Dosing Weight 49.091, kg, Priority: STAT, Start date: 03/20/18 21:50:00 CDT, Stop date: 03/20/18 21:50:00 CDT Inactive 03/21/2018 [facility] Sodium Chloride 0.9% (Bolus) IV 1,000 mL, Infuse Over: 1 hr, Route: IV, ONCE, Priority: STAT, Dosing Weight 49.091 kg, Start date: 03/20/18 21:50:00 CDT, Stop date: 03/20/18 21:50:00 CDT Inactive 03/21/2018 [facility] Benadryl 12.5 mg, Route: IVP, ONCE, Dosing Weight 49.091, kg, Priority: STAT, Start date: 03/20/18 21:50:00 CDT, Stop date: 03/20/18 21:50:00 CDT Inactive 03/21/2018 [facility] Saline Flush 0.9% 10 mL, Route: IVP, Drug Form: INJ, Dosing Weight 51.364, kg, PRN, PRN Line Flush, Start date: 03/20/18 19:28:00 CDT, Duration: 30 day, Stop date: 04/19/18 19:27:00 CDTNotes: (Same as: BD Posiflush) No Longer Active 03/21/2018 [facility] Metronidazole 500 MG Oral Tablet [Flagyl] 500 mg=1 tab, PO, BID, X 7 day, # 14 tab, 0 Refill(s) No Longer Active 01/24/2018 [facility] cephalexin 500 mg oral tablet 500 mg=1 tab, PO, TID, X 7 day, # 21 tab, 0 Refill(s) No Longer Active 01/24/2018 [facility] Allergies, Adverse Reactions, Alerts Substance Category Reaction Severity Reaction type Status Date Reported Comments Source Immunizations Immunization Date Given Site Status Last Updated Comments Source measles/mumps/rubella virus vaccine 10/14/2018 Right upper arm completed Long [facility] diphtheria/pertussis, acel/tetanus adult 10/14/2018 Right deltoid completed Long [facility] influenza virus vaccine, inactivated 07/15/2018 Not Given [facility] Results Order Name Results Value Reference Range Date Interpretation Comments Source HEMATOLOGY Hgb 9.0 g/dL 12.0 - 16.0 10/13/2018 [facility] HEMATOLOGY Hct 27.6 % 36.0 - 48.0 10/13/2018 [facility] BLOOD BANK RESULTS Rhig Reqd See Note 1 (10/11/18 7:26 PM) 10/12/2018 Result Comment: 10/11/2018 21:05 [id number] This patient is not a candidate for Rh(O)D immune globulin. [facility] BLOOD BANK RESULTS Antibody Scrn Negative (10/11/18 7:26 PM) 10/12/2018 [facility] BLOOD BANK RESULTS ABO/Rh A POS 10/12/2018 [facility] Basophils # 0.1 K/CMM 0.0 - 0.2 10/12/2018 [facility] Eosinophils # 0.2 K/CMM 0.0 - 0.5 10/12/2018 [facility] Monocytes # 0.6 K/CMM 0.0 - 0.8 10/12/2018 [facility] HEMATOLOGY Basophils 1.0 % 0.0 - 1.0 10/12/2018 [facility] HEMATOLOGY Lymphocytes # 1.9 K/CMM 1.0 - 5.5 10/12/2018 [facility] HEMATOLOGY Eosinophils 2.5 % 0.0 - 4.0 10/12/2018 [facility] HEMATOLOGY Segs 71.4 % 45.0 - 75.0 10/12/2018 [facility] Monocytes 5.8 % 2.0 - 12.0 10/12/2018 [facility] Lymphocytes 19.3 % 20.0 - 40.0 10/12/2018 [facility] Neutrophils # 6.9 K/CMM 1.5 - 8.1 10/12/2018 [facility] WBC 9.7 K/CMM 3.7 - 10.4 10/12/2018 [facility] RBC 4.34 M/CMM 4.20 - 5.40 10/12/2018 [facility] MCHC 32.8 g/dL 32.0 - 36.0 10/12/2018 [facility] MCV 83.4 fL 80.0 - 98.0 10/12/2018 [facility] Hgb 11.9 g/dL 12.0 - 16.0 10/12/2018 [facility] MCH 27.3 pg 27.0 - 31.0 10/12/2018 [facility] Hct 36.2 % 36.0 - 48.0 10/12/2018 [facility] Platelet 201 K/CMM 133 - 450 10/12/2018 [facility] MPV 10.2 fL 7.4 - 10.4 10/12/2018 [facility] RDW 22.5 % 11.5 - 14.5 10/12/2018 [facility] HIV. Negative *NA* (10/11/18 7:26 PM) Negative 10/12/2018 [facility] Treponemal Ab Non-Reactive *NA* (10/11/18 7:26 PM) Non 10/12/2018 [facility] Hep Bs Ag Negative *NA* (10/11/18 7:26 PM) Negative 10/12/2018 [facility] Chest 1view DX Chest 1view DX Clinical Indication: Chest tightness - decreased respiratory effort Comparison: None FINDINGS: Single frontal radiograph of the chest is performed. Heart size is within normal limits. Mediastinal contours are unremarkable. Lungs are clear without infiltrate or mass. No pleural effusion or pneumothorax. No acute osseous abnormality. IMPRESSION: 1. No radiographic evidence for acute process in the chest. SL: [id number] 07/13/2018 - - Read by: Andrea Layne MD Dictated Date/time: 07/13/18 23:21 Electronically Signed by: Andrea Layne MD 07/13/18 23:21 FINAL REPORT [facility] Retroperitoneal Complete US Retroperitoneal Complete US Clinical Indication: Left flank pain. Comparison: None TECHNIQUE: Multiple longitudinal and transverse real time sonographic images of the kidneys and urinary bladder are obtained. FINDINGS: KIDNEY: The right kidney measures 11.5 x 5.7 x 6.2 cm. The left kidney measures 11.6 x 7.1 x 5.3 cm. The kidneys are normal in size, shape, contour, and position. There is moderate bilateral hydronephrosis. No definite shadowing renal stone is seen. BLADDER: Scanning through the pelvis reveals the bladder to be partially distended with anechoic urine. AORTA AND IVC: The visualized portions appear unremarkable. The distal abdominal aorta and bilateral common iliac arteries are not well-visualized due to overlying bowel gas. ASCITES: No ascites noted. IMPRESSION: Moderate bilateral hydronephrosis. SL: CHET 07/13/2018 - - Read by: Lee Valle MD Dictated Date/time: 07/14/18 00:16 Electronically Signed by: Lee Valle MD 07/14/18 00:24 FINAL REPORT [facility] CHEM PANEL Lipase Lvl 112 unit/L 73 - 393 06/09/2018 [facility]M PANEL Amylase Lvl 71 unit/L 25 - 115 06/09/2018 [facility]M PANEL Globulin 3.8 g/dL 2.7 - 4.2 06/09/2018 [facility] PAN[facility] B/C Ratio 16 6 - 25 06/09/2018 [facility] A/G Ratio 0.8 0.7 - 1.6 06/09/2018 [facility]M PANEL AGAP 11.9 meq/L 10.0 - 20.0 06/09/2018 [facility] CHEM PANEL eGFR 154 mL/min/1.73m2 06/09/2018 Result Comment: The eGFR is calculated using the [...] from the National Kidney Disease Education Program (NKDEP) which additionally recommends that when the eGFR is used in patients with extremes of body mass index for purposes of drug dosing, the eGFR should be multiplied by the estimated BMI. [facility] CHEM PANEL AST 11 unit/L 0 - 37 06/09/2018 [facility] CHEM PANEL ALT 22 unit/L 0 - 65 06/09/2018 [facility] CHEM PANEL Alk Phos 64 unit/L 39 - 136 06/09/2018 [facility] CHEM PANEL Bili Total 0.3 mg/dL 0.2 - 1.3 06/09/2018 [facility] CHEM PANEL Chloride Lvl 107 meq/L 95 - 109 06/09/2018 [facility] CHEM PANEL Calcium Lvl 8.6 mg/dL 8.5 - 10.5 06/09/2018 [facility] CHEM PANEL CO2 23 meq/L 24 - 32 06/09/2018 [facility] CHEM PANEL Albumin Lvl 3.0 g/dL 3.5 - 5.0 06/09/2018 [facility] CHEM PANEL Total Protein 6.8 g/dL 6.4 - 8.4 06/09/2018 [facility] CHEM PANEL Glucose Lvl 77 mg/dL 70 - 99 06/09/2018 [facility] CHEM PANEL Sodium Lvl 138 meq/L 135 - 145 06/09/2018 [facility] CHEM PANEL Creatinine Lvl 0.38 mg/dL 0.50 - 1.40 06/09/2018 [facility] CHEM PANEL BUN 6 mg/dL 7 - 22 06/09/2018 [facility] CHEM PANEL Potassium Lvl 3.9 meq/L 3.5 - 5.1 06/09/2018 [facility] ERTAPENEM:SUSC:PT:ISOLATE:ORDQN:MILES Culture: Urine >100,000 CFU/mL Escherichia coli
.
<10,000 CFU/mL Skin Florinda 06/09/2018 [facility] ERTAPENEM:SUSC:PT:ISOLATE:ORDQN:MILES Escherichia coli Escherichia coli 06/09/2018 [facility] HEMATOLOGY MPV 9.6 fL 7.4 - 10.4 06/09/2018 [facility] HEMATOLOGY Platelet 205 K/CMM 133 - 450 06/09/2018 [facility] MCHC 33.4 g/dL 32.0 - 36.0 06/09/2018 [facility] RDW 15.0 % 11.5 - 14.5 06/09/2018 [facility] MCH 29.4 pg 27.0 - 31.0 06/09/2018 [facility] HEMATOLOGY MCV 87.9 fL 80.0 - 98.0 06/09/2018 [facility] HEMATOLOGY Hct 31.1 % 36.0 - 48.0 06/09/2018 [facility] HEMATOLOGY WBC 14.2 K/CMM 3.7 - 10.4 06/09/2018 [facility] HEMATOLOGY RBC 3.53 M/CMM 4.20 - 5.40 06/09/2018 [facility] HEMATOLOGY Hgb 10.4 g/dL 12.0 - 16.0 06/09/2018 [facility] HEMATOLOGY Lymphocytes # 2.0 K/CMM 1.0 - 5.5 06/09/2018 [facility] HEMATOLOGY Basophils # 0.1 K/CMM 0.0 - 0.2 06/09/2018 [facility] HEMATOLOGY Monocytes # 0.8 K/CMM 0.0 - 0.8 06/09/2018 [facility] HEMATOLOGY Eosinophils # 0.1 K/CMM 0.0 - 0.5 06/09/2018 [facility] HEMATOLOGY Neutrophils # 11.3 K/CMM 1.5 - 8.1 06/09/2018 [facility] HEMATOLOGY Basophils 0.4 % 0.0 - 1.0 06/09/2018 [facility] HEMATOLOGY Eosinophils 0.9 % 0.0 - 4.0 06/09/2018 [facility] Monocytes 5.6 % 2.0 - 12.0 06/09/2018 [facility] HEMATOLOGY Segs 79.3 % 45.0 - 75.0 06/09/2018 [facility] Lymphocytes 13.8 % 20.0 - 40.0 06/09/2018 [facility] URINE AND STOOL UA Urobilinogen <=1.0 mg/dL 0.1 - 1.0 06/09/2018 [facility] URINE AND STOOL UA Sq Epi Occasional /LPF Few /LPF 06/09/2018 [facility] URINE AND STOOL UA Leuk Est Moderate *ABN* (06/09/18 6:46 AM) Negative 06/09/2018 [facility] URINE AND STOOL UA Nitrite Positive *ABN* (06/09/18 6:46 AM) Negative 06/09/2018 [facility] URINE AND STOOL UA Blood Large *ABN* (06/09/18 6:46 AM) Negative 06/09/2018 [facility] URINE AND STOOL UA WBC 56 /HPF 0 - 5 06/09/2018 [facility] URINE AND STOOL UA RBC 113 /HPF 0 - 2 06/09/2018 [facility] URINE AND STOOL UA Bacteria Moderate /HPF None Seen /HPF 06/09/2018 [facility] URINE AND STOOL UA Mucus Few /LPF None Seen /LPF 06/09/2018 [facility] URINE AND STOOL UA Amorph Urszula Occasional /HPF None Seen /HPF 06/09/2018 [facility] URINE AND STOOL UA Protein 100 mg/dL Negative mg/dL 06/09/2018 [facility] URINE AND STOOL UA Glucose Negative mg/dL Negative mg/dL 06/09/2018 [facility] URINE AND STOOL UA pH 7.0 5.0 - 8.0 06/09/2018 [facility] URINE AND STOOL UA Ketones Negative mg/dL Negative mg/dL 06/09/2018 [facility] URINE AND STOOL UA Bili Negative *NA* (06/09/18 6:46 AM) Negative 06/09/2018 [facility] URINE AND STOOL UA Turbidity Marked *ABN* (06/09/18 6:46 AM) Clear 06/09/2018 [facility] URINE AND STOOL UA Color Yellow *NA* (06/09/18 6:46 AM) Yellow 06/09/2018 [facility] URINE AND STOOL UA Spec Grav 1.012 <=1.030 06/09/2018 [facility] Abdomen RLQ US Abdomen RLQ US LIMITED ABDOMINAL ULTRASOUND WITH ATTENTION TO THE RIGHT LOWER QUADRANT INDICATION: Right lower quadrant pain. Clinical concern for appendicitis. Patient is 21 weeks . COMPARISON: None. FINDINGS: There is tenderness over the right lower quadrant when pressure is applied with the ultrasound transducer. The appendix is not visualized. No right lower quadrant fluid collections or lymphadenopathy. There is a moderate amount of bowel gas in this area. IMPRESSION: 1. Nonvisualization of the appendix. No right lower quadrant adenopathy or fluid collections evident. END REPORT SL: [id number] 06/09/2018 - - Read by: Chris Acuña MD Dictated Date/time: 06/09/18 09:21 Electronically Signed by: Chris Acuña MD 06/09/18 09:24 FINAL REPORT [facility] MOLECULAR DIAGNOSTIC Source [facility] Urine *NA* (03/20/18 8:24 PM) 03/21/2018 [facility] MOLECULAR DIAGNOSTIC C trachomatis by Amp Det ([facility]TIM[facility]) Negative *NA* (03/20/18 8:24 PM) Negative 03/21/2018 [facility] MOLECULAR DIAGNOSTIC N gonorrhea by Amp Det ([facility]) Negative *NA* (03/20/18 8:24 PM) Negative 03/21/2018 [facility] URINE AND STOOL UA WBC 41 /HPF 0 - 5 03/21/2018 [facility] URINE AND STOOL UA Bacteria Occasional /HPF None Seen /HPF 03/21/2018 [facility] URINE AND STOOL UA Mucus Many /LPF None Seen /LPF 03/21/2018 [facility] URINE AND STOOL UA Amorph Urszula Moderate /HPF None Seen /HPF 03/21/2018 [facility] URINE AND STOOL UA pH 5.0 5.0 - 8.0 03/21/2018 [facility] URINE AND STOOL UA Protein 30 mg/dL Negative mg/dL 03/21/2018 [facility] URINE AND STOOL UA Sq Epi Few /LPF Few /LPF 03/21/2018 [facility] URINE AND STOOL UA Blood Negative (03/20/18 8:24 PM) Negative 03/21/2018 [facility] URINE AND STOOL UA Urobilinogen 4.0 mg/dL 0.1 - 1.0 03/21/2018 [facility] URINE AND STOOL UA Nitrite Negative (03/20/18 8:24 PM) Negative 03/21/2018 [facility] URINE AND STOOL UA Leuk Est Moderate *ABN* (03/20/18 8:24 PM) Negative 03/21/2018 [facility] URINE AND STOOL UA Bili Negative *NA* (03/20/18 8:24 PM) Negative 03/21/2018 [facility] URINE AND STOOL UA Glucose 50 mg/dL Negative mg/dL 03/21/2018 [facility] URINE AND STOOL UA Spec Grav 1.030 <=1.030 03/21/2018 [facility] URINE AND STOOL UA Ketones 20 mg/dL Negative mg/dL 03/21/2018 [facility] URINE AND STOOL UA Color Yellow *NA* (03/20/18 8:24 PM) Yellow 03/21/2018 [facility] URINE AND STOOL UA Turbidity Marked *ABN* (03/20/18 8:24 PM) Clear 03/21/2018 [facility] BLOOD BANK RESULTS ABO/Rh A POS 03/21/2018 [facility] CHEM PANEL Bili Total 0.3 mg/dL 0.2 - 1.3 03/21/2018 [facility] CHEM PANEL Alk Phos 46 unit/L 39 - 136 03/21/2018 [facility] CHEM PANEL ALT 20 unit/L 0 - 65 03/21/2018 [facility] CHEM PANEL AST 15 unit/L 0 - 37 03/21/2018 [facility] CHEM PANEL Albumin Lvl 4.1 g/dL 3.5 - 5.0 03/21/2018 [facility] CHEM PANEL Calcium Lvl 9.2 mg/dL 8.5 - 10.5 03/21/2018 [facility] CHEM PANEL Total Protein 8.3 g/dL 6.4 - 8.4 03/21/2018 [facility] CHEM PANEL eGFR 134 mL/min/1.73m2 03/21/2018 Result Comment: The eGFR is calculated using the [...] from the National Kidney Disease Education Program (NKDEP) which additionally recommends that when the eGFR is used in patients with extremes of body mass index for purposes of drug dosing, the eGFR should be multiplied by the estimated BMI. [facility] CHEM PANEL Sodium Lvl 140 meq/L 135 - 145 03/21/2018 [facility] CHEM PANEL Glucose Lvl 136 mg/dL 70 - 99 03/21/2018 [facility] CHEM PANEL Potassium Lvl 3.9 meq/L 3.5 - 5.1 03/21/2018 [facility] CHEM PANEL Chloride Lvl 108 meq/L 95 - 109 03/21/2018 [facility] CHEM PANEL CO2 22 meq/L 24 - 32 03/21/2018 [facility] CHEM PANEL BUN 7 mg/dL 7 - 22 03/21/2018 [facility] CHEM PANEL Creatinine Lvl 0.58 mg/dL 0.50 - 1.40 03/21/2018 [facility] CHEM PANEL A/G Ratio 1.0 0.7 - 1.6 03/21/2018 [facility] CHEM PANEL AGAP 13.9 meq/L 10.0 - 20.0 03/21/2018 [facility] CHEM PANEL B/C Ratio 12 6 - 25 03/21/2018 [facility] CHEM PANEL Globulin 4.2 g/dL 2.7 - 4.2 03/21/2018 [facility] ENDOCRINOLOGY hCG Tot >200,000 mIU/mL 03/21/2018 [facility] HEMATOLOGY MCH 27.9 pg 27.0 - 31.0 03/21/2018 [facility] MCV 83.8 fL 80.0 - 98.0 03/21/2018 [facility] MCHC 33.3 g/dL 32.0 - 36.0 03/21/2018 [facility] RBC 4.42 M/CMM 4.20 - 5.40 03/21/2018 [facility] Hgb 12.4 g/dL 12.0 - 16.0 03/21/2018 [facility] Hct 37.1 % 36.0 - 48.0 03/21/2018 [facility] Platelet 204 K/CMM 133 - 450 03/21/2018 [facility] RDW 15.4 % 11.5 - 14.5 03/21/2018 [facility] MPV 9.7 fL 7.4 - 10.4 03/21/2018 [facility] WBC 8.1 K/CMM 3.7 - 10.4 03/21/2018 [facility] Basophils 0.6 % 0.0 - 1.0 03/21/2018 [facility] Segs-Bands # 6.2 K/CMM 1.5 - 8.1 03/21/2018 [facility] Lymphocytes # 1.3 K/CMM 1.0 - 5.5 03/21/2018 [facility] Eosinophils # 0.1 K/CMM 0.0 - 0.5 03/21/2018 [facility] Monocytes # 0.5 K/CMM 0.0 - 0.8 03/21/2018 [facility] Basophils # 0.1 K/CMM 0.0 - 0.2 03/21/2018 [facility] Segs 76.5 % 45.0 - 75.0 03/21/2018 [facility] Monocytes 6.0 % 2.0 - 12.0 03/21/2018 [facility] Lymphocytes 15.8 % 20.0 - 40.0 03/21/2018 [facility] Eosinophils 1.1 % 0.0 - 4.0 03/21/2018 [facility] Preg < 14wks sing gest w transvag/Dop US Preg < 14wks sing gest w transvag/Dop US Clinical Indication: Vaginal bleeding, nausea/vomiting, abdominal pain. Comparison: None TECHNIQUE: Pelvic ultrasound was performed with color and grayscale imaging. Transabdominal and transvaginal technique performed. FINDINGS: The pelvic transabdominal ultrasound static images show that the uterus measures 10.9 x 5.9 x 8.1 cm. Transvaginal approach was utilized to evaluate the gestation, both ovaries, and adnexa. The pelvic transvaginal images show a single monochorionic/monoamnionic intrauterine with an ovoid gestational sac. The estimated gestational age is 9 weeks and 2 days by crown-rump length. Mean sac diameter measures 4.0 cm. Mild amount of echogenic debris is present within the gestational sac. The heart rate is 174 beats per minute. Hyperechoic yolk sac is present. There are no subchorionic hemorrhages noted. The estimated date of delivery is 10/22/2018. Recommend follow up ultrasound at 18-21 weeks gestational age for more detailed assessment of age and anatomy. The right ovary measures 3.7 x 1.9 x 1.9 cm. The left ovary measures 3.4 x 2.1 x 2.5 cm. There is normal ovarian contour and morphology. The Doppler images show normal bilateral ovarian blood flow. There are no adnexal masses. There is no free fluid in the cul-de-sac. IMPRESSION: 1. Single intrauterine with estimated gestational age of 9 weeks and 2 days . heart rate of 174 beats per minute. No sonographic evidence of hemorrhage.. Slightly hyperechoic yolk sac and gestational sac, potentially within normal limits. Consider short-term follow-up ultrasound in approximately 2 weeks to reevaluate. SL: [id number] 03/20/2018 - - Read by: Sandhya Mckeon MD Dictated Date/time: 03/20/18 21:27 Electronically Signed by: Sandhya Mckeon MD 03/20/18 21:34 FINAL REPORT [facility] MOLECULAR DIAGNOSTIC C trachomatis by Amp Det ([facility]) Negative *NA* (01/23/18 11:15 PM) Negative 01/24/2018 [facility] MOLECULAR DIAGNOSTIC N gonorrhea by Amp Det ([facility]) Negative *NA* (01/23/18 11:15 PM) Negative 01/24/2018 [facility] MOLECULAR DIAGNOSTIC Source [facility] Endocervix *NA* (01/23/18 11:15 PM) 01/24/2018 [facility] CHEM PANEL Lipase Lvl 151 unit/L 73 - 393 01/23/2018 [facility] CHEM PANEL eGFR 134 mL/min/1.73m2 01/23/2018 Result Comment: The eGFR is calculated using the [...] from the National Kidney Disease Education Program (NKDEP) which additionally recommends that when the eGFR is used in patients with extremes of body mass index for purposes of drug dosing, the eGFR should be multiplied by the estimated BMI. [facility] CHEM PANEL AST 16 unit/L 0 - 37 01/23/2018 [facility] CHEM PANEL Albumin Lvl 3.7 g/dL 3.5 - 5.0 01/23/2018 [facility] CHEM PANEL Total Protein 7.9 g/dL 6.4 - 8.4 01/23/2018 [facility] CHEM PANEL Bili Total 0.2 mg/dL 0.2 - 1.3 01/23/2018 [facility] CHEM PANEL Alk Phos 64 unit/L 39 - 136 01/23/2018 [facility] CHEM PANEL ALT 21 unit/L 0 - 65 01/23/2018 [facility] CHEM PANEL Sodium Lvl 140 meq/L 135 - 145 01/23/2018 [facility] CHEM PANEL Creatinine Lvl 0.58 mg/dL 0.50 - 1.40 01/23/2018 [facility] CHEM PANEL BUN 11 mg/dL 7 - 22 01/23/2018 [facility] CHEM PANEL Calcium Lvl 9.2 mg/dL 8.5 - 10.5 01/23/2018 [facility] CHEM PANEL Glucose Lvl 93 mg/dL 70 - 99 01/23/2018 [facility] CHEM PANEL CO2 28 meq/L 24 - 32 01/23/2018 [facility] CHEM PANEL Chloride Lvl 103 meq/L 95 - 109 01/23/2018 [facility] CHEM PANEL Potassium Lvl 4.0 meq/L 3.5 - 5.1 01/23/2018 [facility] CHEM PANEL Globulin 4.2 g/dL 2.7 - 4.2 01/23/2018 [facility] CHEM PANEL B/C Ratio 19 6 - 25 01/23/2018 [facility] CHEM PANEL A/G Ratio 0.9 0.7 - 1.6 01/23/2018 [facility] CHEM PANEL AGAP 13.0 meq/L 10.0 - 20.0 01/23/2018 [facility] HEMATOLOGY Segs 60.4 % 45.0 - 75.0 01/23/2018 [facility] HEMATOLOGY Basophils 1.3 % 0.0 - 1.0 01/23/2018 [facility] HEMATOLOGY Lymphocytes 28.0 % 20.0 - 40.0 01/23/2018 [facility] HEMATOLOGY Eosinophils 3.9 % 0.0 - 4.0 01/23/2018 [facility] HEMATOLOGY Monocytes 6.4 % 2.0 - 12.0 01/23/2018 [facility] HEMATOLOGY Lymphocytes # 2.4 K/CMM 1.0 - 5.5 01/23/2018 [facility] HEMATOLOGY Segs-Bands # 5.2 K/CMM 1.5 - 8.1 01/23/2018 [facility] HEMATOLOGY Monocytes # 0.5 K/CMM 0.0 - 0.8 01/23/2018 [facility] Basophils # 0.1 K/CMM 0.0 - 0.2 01/23/2018 [facility] HEMATOLOGY Eosinophils # 0.3 K/CMM 0.0 - 0.5 01/23/2018 [facility] HEMATOLOGY Hct 36.0 % 36.0 - 48.0 01/23/2018 [facility] HEMATOLOGY MPV 9.3 fL 7.4 - 10.4 01/23/2018 [facility] Platelet 252 K/CMM 133 - 450 01/23/2018 [facility] RDW 17.0 % 11.5 - 14.5 01/23/2018 [facility] MCHC 33.3 g/dL 32.0 - 36.0 01/23/2018 [facility] MCH 27.1 pg 27.0 - 31.0 01/23/2018 [facility] MCV 81.2 fL 80.0 - 98.0 01/23/2018 [facility] RBC 4.44 M/CMM 4.20 - 5.40 01/23/2018 [facility] WBC 8.6 K/CMM 3.7 - 10.4 01/23/2018 [facility] Hgb 12.0 g/dL 12.0 - 16.0 01/23/2018 [facility] URINE AND STOOL UA Mucus Few /LPF None Seen /LPF 01/23/2018 [facility] URINE AND STOOL UA RBC 3 /HPF 0 - 2 01/23/2018 [facility] URINE AND STOOL UA Bacteria Moderate /HPF None Seen /HPF 01/23/2018 [facility] URINE AND STOOL UA Urobilinogen <=1.0 mg/dL 0.1 - 1.0 01/23/2018 [facility] URINE AND STOOL UA Bili Negative *NA* (01/23/18 6:33 PM) Negative 01/23/2018 [facility] URINE AND STOOL UA Nitrite Positive *ABN* (01/23/18 6:33 PM) Negative 01/23/2018 [facility] URINE AND STOOL UA Blood Negative (01/23/18 6:33 PM) Negative 01/23/2018 [facility] URINE AND STOOL UA Ketones Negative mg/dL Negative mg/dL 01/23/2018 [facility] URINE AND STOOL UA Glucose Negative mg/dL Negative mg/dL 01/23/2018 [facility] URINE AND STOOL UA Leuk Est Trace *ABN* (01/23/18 6:33 PM) Negative 01/23/2018 [facility] URINE AND STOOL UA Sq Epi Occasional /LPF Few /LPF 01/23/2018 [facility] URINE AND STOOL UA WBC 17 /HPF 0 - 5 01/23/2018 [facility] URINE AND STOOL UA pH 5.0 5.0 - 8.0 01/23/2018 [facility] URINE AND STOOL UA Protein Negative mg/dL Negative mg/dL 01/23/2018 [facility] URINE AND STOOL UA Color Yellow *NA* (01/23/18 6:33 PM) Yellow 01/23/2018 [facility] URINE AND STOOL UA Turbidity Slight *ABN* (01/23/18 6:33 PM) Clear 01/23/2018 [facility] URINE AND STOOL UA Spec Grav 1.017 <=1.030 01/23/2018 [facility] URINE CHEM U Preg Negative (01/23/18 6:33 PM) Negative 01/23/2018 [facility] Vital Signs Vital Sign Value Date Comments Source Respitory Rate 16 10/14/2018 [facility] Heart Rate 69 10/14/2018 [facility] Temperature Oral (F) 98.0 F 10/14/2018 [facility] Systolic (mm Hg) 111 10/14/2018 [facility] Diastolic (mm Hg) 70 10/14/2018 [facility] Systolic (mm Hg) 121 10/14/2018 [facility] Diastolic (mm Hg) 77 10/14/2018 [facility] Respitory Rate 16 10/14/2018 [facility] Temperature Oral (F) 98.3 F 10/14/2018 [facility] Heart Rate 82 10/14/2018 [facility] Respitory Rate 18 10/13/2018 [facility] Heart Rate 100 10/13/2018 [facility] Systolic (mm Hg) 122 10/13/2018 [facility] Diastolic (mm Hg) 72 10/13/2018 [facility] Temperature Oral (F) 97.9 F 10/13/2018 [facility] BMI Calculated 27.27 10/12/2018 [facility] Height 154.94 cm 10/12/2018 [facility] Weight 65.455 10/12/2018 [facility] Systolic (mm Hg) 103 06/09/2018 [facility] Diastolic (mm Hg) 58 06/09/2018 [facility] Systolic (mm Hg) 107 06/09/2018 [facility] Diastolic (mm Hg) 66 06/09/2018 [facility] Systolic (mm Hg) 121 06/09/2018 [facility] Diastolic (mm Hg) 75 06/09/2018 [facility] Weight 48.182 06/09/2018 [facility] BMI Calculated 20.07 06/09/2018 [facility] Heart Rate 89 06/09/2018 [facility] Respitory Rate 18 06/09/2018 [facility] Temperature Oral (F) 98.3 F 06/09/2018 [facility] Height 154.94 cm 06/09/2018 [facility] Heart Rate 77 03/21/2018 [facility] Temperature Oral (F) 98.7 F 03/21/2018 [facility] Systolic (mm Hg) 93 03/21/2018 [facility] Diastolic (mm Hg) 52 03/21/2018 [facility] Respitory Rate 18 03/21/2018 [facility] Heart Rate 84 03/21/2018 [facility] Weight 49.091 03/21/2018 [facility] Respitory Rate 18 03/21/2018 [facility] Temperature Oral (F) 98.6 F 03/21/2018 [facility] Height 154.94 cm 03/21/2018 [facility] BMI Calculated 20.45 03/21/2018 [facility] Systolic (mm Hg) 101 03/21/2018 [facility] Diastolic (mm Hg) 63 03/21/2018 [facility] Systolic (mm Hg) 110 01/24/2018 [facility] Diastolic (mm Hg) 72 01/24/2018 [facility] Heart Rate 74 01/24/2018 [facility] Respitory Rate 18 01/24/2018 [facility] Respitory Rate 18 01/24/2018 [facility] Heart Rate 81 01/24/2018 [facility] Systolic (mm Hg) 102 01/24/2018 [facility] Diastolic (mm Hg) 64 01/24/2018 [facility] Temperature Oral (F) 98.1 F 01/24/2018 [facility] Temperature Oral (F) 97.8 F 01/23/2018 [facility] Height 154.94 cm 01/23/2018 [facility] Respitory Rate 18 01/23/2018 [facility] Heart Rate 74 01/23/2018 [facility] Systolic (mm Hg) 106 01/23/2018 [facility] Diastolic (mm Hg) 70 01/23/2018 [facility] Weight 51.364 01/23/2018 [facility] BMI Calculated 21.4 01/23/2018 [facility] Encounters Location Location Details Encounter Type Encounter Number Reason For Visit Attending Provider ADM Date DC Date Status Source [facility] Emergency [id number] Ramiro Hernandez 01/23/2018 01/24/2018 [facility] Emergency [id number] Rogerio Contreras 03/21/2018 03/21/2018 [facility] Emergency [id number] Yanna Alvarez 06/09/2018 06/09/2018 [facility] Inpatient [id number] Jesus Munoz 10/11/2018 10/14/2018 [facility] Procedures Procedure Code Date Perfomer Comments Source
--- OUTSIDE RECORDS SUMMARY | 2019-01-06 02:07 | XMS REPORT | Summary of Care ---
Author Author [facility] Organization [facility] Address Unknown Phone Unavailable Encounter [facility](CARLOS ALBERTO) [id number] Date(s): 10/11/18 - 10/14/18 [facility] [address] [place] [address]- Discharge Disposition: Home or Self Care Attending Physician: Jesus Munoz MD Admitting Physician: Jesus Munoz MD Vital Signs 1 2 3 Most recent to oldest [Reference Range]: 154.94 cm (10/11/18 6:10 PM) Height 98.0 DegF (10/14/18 8:02 AM) 98.3 DegF (10/14/18 12:30 AM) 97.9 DegF (10/13/18 3:55 PM) Temperature Oral [96.4-99.1 DegF] 111/70 mmHg (10/14/18 8:02 AM) 121/77 mmHg (10/14/18 12:30 AM) 122/72 mmHg (10/13/18 3:55 PM) Blood Pressure [90-140/60-90 mmHg] 16 BRMIN (10/14/18 8:02 AM) 16 BRMIN (10/14/18 12:30 AM) 18 BRMIN (10/13/18 3:55 PM) Respiratory Rate [14-20 BRMIN] 69 bpm (10/14/18 8:02 AM) 82 bpm (10/14/18 12:30 AM) 100 bpm (10/13/18 3:55 PM) Peripheral Pulse Rate [60-100 bpm] 65.455 kg (10/11/18 6:10 PM) Weight 27.27 m2 (10/11/18 6:10 PM) Body Mass Index Problem List Condition Effective Dates Status Health Status Informant (Confirmed) 07/13/18 - 10/12/18 Resolved Allergies, Adverse Reactions, Alerts Substance Reaction Severity Status NKDA Active Medications acetaminophen-hydrocodone 325 mg-5 mg oral tablet 1 tab, Route: PO, Drug Form: TAB, Dosing Weight 65.455, kg, Q4H, PRN Pain Score 4-6, Start date: 10/11/18 18:34:00 COURTROOM DEPUTY OR CALENDAR CLERK, Duration: 30 day, Stop date: 11/10/18 18 :33:00 COURTROOM DEPUTY OR CALENDAR CLERK Notes: (Same as: [place] 325/5) Do not exceed 4gm/day of acetaminophen. Start Date: 10/11/18 Stop Date: 10/12/18 Status: Discontinued acetaminophen-hydrocodone 325 mg-5 mg oral tablet 2 tab, Route: PO, Drug Form: TAB, Dosing Weight 65.455, kg, Q4H, PRN Pain Score 7-10, Start date: 10/11/18 18:34:00 COURTROOM DEPUTY OR CALENDAR CLERK, Duration: 30 day, Stop date: 11/10/18 1 8:33:00 COURTROOM DEPUTY OR CALENDAR CLERK Notes: (Same as: [place] 325/5) Do not exceed 4gm/day of acetaminophen. Start Date: 10/11/18 Stop Date: 10/12/18 Status: Discontinued bisacodyl 15 mg, 3 tab, Route: PO, Drug form: ECTAB, Daily, Dosing Weight 65.455, kg, PRN Other -See Comment, Start date: 10/12/18 18:41:00 COURTROOM DEPUTY OR CALENDAR CLERK, Duration: 30 day, Stop da te: 11/11/18 18:40:00 COURTROOM DEPUTY OR CALENDAR CLERK Notes: (Same As: Dulcolax, Correctol) (Do Not Crush) "Do Not Crush" Start Date: 10/12/18 Stop Date: 10/14/18 Status: Discontinued bisacodyl 10 mg, 1 supp, Route: OK, Drug form: SUPP, PRN, Dosing Weight 65.455, kg, PRN Ot her -See Comment, Start date: 10/12/18 18:41:00 COURTROOM DEPUTY OR CALENDAR CLERK, Duration: 30 day, Stop date : 11/11/18 18:40:00 COURTROOM DEPUTY OR CALENDAR CLERK Notes: (Same As: Dulcolax, [place]-Lax) Start Date: 10/12/18 Stop Date: 10/14/18 Status: Discontinued butorphanol 1 mg, 1 mL, Route: IVP, Drug form: INJ, Q2H, Dosing Weight 65.455, kg, PRN Pain Score 4-6, Start date: 10/11/18 18:34:00 COURTROOM DEPUTY OR CALENDAR CLERK, Duration: 30 day, Stop date: 11/10 18:33:00 COURTROOM DEPUTY OR CALENDAR CLERK Notes: (Same As: Stadol) Start Date: 10/11/18 Stop Date: 10/12/18 Status: Discontinued butorphanol 2 mg, 1 mL, Route: IVP, Drug form: INJ, Q2H, Dosing Weight 65.455, kg, PRN Pain Score 7-10, Start date: 10/11/18 18:34:00 COURTROOM DEPUTY OR CALENDAR CLERK, Duration: 30 day, Stop date: 10/27 02/11 18:33:00 COURTROOM DEPUTY OR CALENDAR CLERK Notes: (Same As: Stadol) MEDICATION WASTE Product Size: 2 mgProduct Was angela: ___ mg Start Date: 10/11/18 Stop Date: 10/12/18 Status: Discontinued carboprost 250 microgram, 1 mL, Route: IM, Drug form: INJ, ONCALL, Dosing Weight 65.455, kg , Start date: 10/11/18 19:00:00 COURTROOM DEPUTY OR CALENDAR CLERK, Duration: 30 day, Stop date: 11/10/18 18:59 :00 COURTROOM DEPUTY OR CALENDAR CLERK Notes: (Same As: Hemabate) Start Date: 10/11/18 Stop Date: 10/12/18 Status: Discontinued Cervidil 10 mg, Route: VAG, Drug form: SUPP, ONCE, Dosing Weight 65.455, kg, Start date: 10/11/18 19:58:00 COURTROOM DEPUTY OR CALENDAR CLERK, Stop date: 10/11/18 19:58:00 COURTROOM DEPUTY OR CALENDAR CLERK Start Date: 10/11/18 Stop Date: 10/11/18 Status: Completed citric acid-sodium citrate 30 mL, Route: PO, Drug Form: SOLN, Dosing Weight 65.455, kg, ONCALL, Start date: 10/11/18 19:00:00 COURTROOM DEPUTY OR CALENDAR CLERK, Duration: 30 day, Stop date: 11/10/18 18:59:00 COURTROOM DEPUTY OR CALENDAR CLERK Notes: (Same As: Bicitra) Start Date: 10/11/18 Stop Date: 10/12/18 Status: Discontinued Dermoplast 20% topical spray 1 spray, Route: TOP, PRN, Drug form: SPRY, PRN Irritation, Start date: 10/12/18 18:41:00 COURTROOM DEPUTY OR CALENDAR CLERK, Duration: 30 day, Stop date: 11/11/18 18:40:00 COURTROOM DEPUTY OR CALENDAR CLERK Notes: (Same As: Dermoplast)WASTE: Aerosol - Return to Pharmacy FOR EXTERNAL US E ONLY Start Date: 10/12/18 Stop Date: 10/14/18 Status: Discontinued docusate 100 mg, 1 cap, Route: PO, Drug form: CAP, BID, Dosing Weight 65.455, kg, PRN Con stipation, Start date: 10/12/18 18:41:00 COURTROOM DEPUTY OR CALENDAR CLERK, Duration: 30 day, Stop date: 11/11 18:40:00 COURTROOM DEPUTY OR CALENDAR CLERK Notes: (Same as: Colace) (Do Not Crush) Start Date: 10/12/18 Stop Date: 10/14/18 Status: Discontinued famotidine 20 mg, 2 mL, Route: IVP, Drug form: INJ, ONCALL, Dosing Weight 65.455, kg, Start date: 10/11/18 19:00:00 COURTROOM DEPUTY OR CALENDAR CLERK, Duration: 30 day, Stop date: 11/10/18 18:59:00 COURTROOM DEPUTY OR CALENDAR CLERK Notes: (Same as: Pepcid)Can be dilute in 5-10cc NS IVP: Slow IV push over at le ast 2 minutes. Start Date: 10/11/18 Stop Date: 10/12/18 Status: Discontinued Ferrousal 325 mg oral tablet 325 mg=1 tab, PO, TID, 0 Refill(s) Start Date: 10/11/18 Stop Date: 10/14/18 Status: Discontinued ibuprofen 600 mg, 1 tab, Route: PO, Drug form: TAB, Q6Hnow, Dosing Weight 65.455, kg, Star t date: 10/12/18 19:00:00 COURTROOM DEPUTY OR CALENDAR CLERK, Duration: 30 day, Stop date: 11/11/18 15:00:00 CS T Notes: (Same as: Motkami)"Do Not Crush" Take with food. Start Date: 10/12/18 Stop Date: 10/14/18 Status: Discontinued ibuprofen 600 mg, 1 tab, Route: PO, Drug form: TAB, Q6H, Dosing Weight 65.455, kg, PRN Oth er -See Comment, Start date: 10/11/18 18:34:00 COURTROOM DEPUTY OR CALENDAR CLERK, Duration: 30 day, Stop date: 11/10/18 18:33:00 COURTROOM DEPUTY OR CALENDAR CLERK Notes: (Same as: Motrin)"Do Not Crush" Take with food. Start Date: 10/11/18 Stop Date: 10/12/18 Status: Discontinued ibuprofen 400 mg oral tablet 800 mg, 1 tab, Route: PO, Drug form: TAB, Q8H, Dosing Weight 65.455, kg, PRN Melanie n Score 1-3, Start date: 10/14/18 6:09:00 COURTROOM DEPUTY OR CALENDAR CLERK, Duration: 30 day, Stop date: 10/27 05/14 6:08:00 COURTROOM DEPUTY OR CALENDAR CLERK Notes: (Same as: Motrin)"Do Not Crush" Take with food. Start Date: 10/14/18 Stop Date: 10/14/18 Status: Discontinued ibuprofen 600 mg oral tablet 600 mg=1 tab, PO, Q6Hnow, # 30 tab, 0 Refill(s) Start Date: 10/14/18 Stop Date: 10/14/18 Status: Completed Lactated Ringers (Bolus) IV 1,000 mL, 1,000 ml/hr, Infuse Over: 1 hr, Route: IV, 1,000, Drug form: INJ, ONCE , Dosing Weight 65.455 kg, Start date: 10/11/18 18:34:00 COURTROOM DEPUTY OR CALENDAR CLERK, Stop date: 9 18:34:00 COURTROOM DEPUTY OR CALENDAR CLERK, Bolus for regional anesthesia per unit routine Start Date: 10/11/18 Stop Date: 10/12/18 Status: Completed Lactated Ringers IV 1,000 mL 1,000 mL, Rate: 100 ml/hr, Infuse over: 10 hr, Route: IV, Dosing Weight 65.455 k g, Total Volume: 1,000, Start date: 10/12/18 18:41:00 COURTROOM DEPUTY OR CALENDAR CLERK, Duration: 30 day, Sto p date: 11/11/18 18:40:00 COURTROOM DEPUTY OR CALENDAR CLERK, 1.7, m2 Start Date: 10/12/18 Stop Date: 10/14/18 Status: Discontinued Lactated Ringers IV 1,000 mL 1,000 mL, Rate: 125 ml/hr, Infuse over: 8 hr, Route: IV, Dosing Weight 65.455 kg , Total Volume: 1,000, Start date: 10/11/18 18:34:00 COURTROOM DEPUTY OR CALENDAR CLERK, Duration: 30 day, Stop date: 11/10/18 18:33:00 COURTROOM DEPUTY OR CALENDAR CLERK, 1.7, m2 Start Date: 10/11/18 Stop Date: 10/12/18 Status: Discontinued lanolin topical 1 appl, Route: TOP, PRN, Drug form: OINT, PRN Other -See Comment, Start date: 18:41:00 COURTROOM DEPUTY OR CALENDAR CLERK, Duration: 30 day, Stop date: 11/11/18 18:40:00 COURTROOM DEPUTY OR CALENDAR CLERK Start Date: 10/12/18 Stop Date: 10/14/18 Status: Discontinued lidocaine 1% 200 mg, 20 mL, Route: PERCUT, Drug Form: INJ, Dosing Weight 65.455, kg, PRN, PRN Other -See Comment, Start date: 10/11/18 18:34:00 COURTROOM DEPUTY OR CALENDAR CLERK, Duration: 1 doses or corry es, Stop date: Limited # of times Notes: (Same as: Xylocaine) Start Date: 10/11/18 Stop Date: 10/12/18 Status: Completed lidocaine 1% injectable solution 0.25 mL, Route: INTRADERM, Drug Form: INJ, Dosing Weight 65.455, kg, PRN, PRN Ot her -See Comment, Start date: 10/11/18 18:34:00 COURTROOM DEPUTY OR CALENDAR CLERK, Duration: 30 day, Stop date : 11/10/18 18:33:00 COURTROOM DEPUTY OR CALENDAR CLERK Notes: Preservative free. (Same as: Xylocaine MPF) Start Date: 10/11/18 Stop Date: 10/12/18 Status: Discontinued methylergonovine 0.2 mg, 1 mL, Route: IM, Drug form: INJ, PRN, Dosing Weight 65.455, kg, PRN Othe r -See Comment, Start date: 10/12/18 18:41:00 COURTROOM DEPUTY OR CALENDAR CLERK, Duration: 30 day, Stop date: 11/11/18 18:40:00 COURTROOM DEPUTY OR CALENDAR CLERK Notes: (Same as:Methergine) Start Date: 10/12/18 Stop Date: 10/14/18 Status: Discontinued methylergonovine 0.2 mg, 1 mL, Route: IM, Drug form: INJ, ONCALL, Dosing Weight 65.455, kg, Start date: 10/11/18 19:00:00 COURTROOM DEPUTY OR CALENDAR CLERK, Duration: 30 day, Stop date: 11/10/18 18:59:00 COURTROOM DEPUTY OR CALENDAR CLERK Notes: (Same as:Methergine) Start Date: 10/11/18 Stop Date: 10/12/18 Status: Discontinued misoprostol 25 microgram, 1 ea, Route: VAG, Drug form: TAB, Q4H, Dosing Weight 65.455, kg, S tart date: 10/11/18 20:00:00 COURTROOM DEPUTY OR CALENDAR CLERK, Duration: 30 day, Stop date: 11/10/18 16:00:00 COURTROOM DEPUTY OR CALENDAR CLERK Notes: (Same as:Cytotec) Take with food 25 microgram=1/4 tab of 100 microgram. Start Date: 10/11/18 Stop Date: 10/11/18 Status: Canceled misoprostol 1,000 microgram, 10 tab, Route: OK, Drug form: TAB, ONCALL, Dosing Weight 65.455 , kg, Start date: 10/11/18 19:00:00 COURTROOM DEPUTY OR CALENDAR CLERK, Duration: 1 doses or times Notes: (Same as:Cytotec) Take with food Start Date: 10/11/18 Stop Date: 10/12/18 Status: Discontinued [place] 10/325 oral tablet 1 tab, Route: PO, Drug Form: TAB, Dosing Weight 65.455, kg, Q4H, PRN Pain Score 6-10, Start date: 10/12/18 21:07:00 COURTROOM DEPUTY OR CALENDAR CLERK, Duration: 30 day, Stop date: 11/11/18 2 1:06:00 COURTROOM DEPUTY OR CALENDAR CLERK Notes: Do not exceed 4gm/day of acetaminophen. (Same as: [place] 325/10) Start Date: 10/12/18 Stop Date: 10/14/18 Status: Discontinued [place] 5/325 oral tablet 1 tab, Route: PO, Drug Form: TAB, Dosing Weight 65.455, kg, Q4H, PRN Pain Score 1-5, Start date: 10/12/18 21:07:00 COURTROOM DEPUTY OR CALENDAR CLERK, Duration: 30 day, Stop date: 11/11/18 21 :06:00 COURTROOM DEPUTY OR CALENDAR CLERK Notes: (Same as: [place] 325/5) Do not exceed 4gm/day of acetaminophen. Start Date: 10/12/18 Stop Date: 10/14/18 Status: Discontinued ondansetron 4 mg, 2 mL, Route: IVP, Drug form: INJ, Q8H, Dosing Weight 65.455, kg, PRN Nause a & Vomiting, Start date: 10/12/18 18:41:00 COURTROOM DEPUTY OR CALENDAR CLERK, Duration: 30 day, Stop date: 11/11/18 18:40:00 COURTROOM DEPUTY OR CALENDAR CLERK Notes: (Same as: Zofran) MEDICATION WASTE Product Size: 4 mgProduct Was angela: ___ mg Start Date: 10/12/18 Stop Date: 10/14/18 Status: Discontinued ondansetron 4 mg, 2 mL, Route: IVP, Drug form: INJ, Q8H, Dosing Weight 65.455, kg, PRN Nause a & Vomiting, Start date: 10/11/18 18:34:00 COURTROOM DEPUTY OR CALENDAR CLERK, Duration: 30 day, Stop date: 11/10/18 18:33:00 COURTROOM DEPUTY OR CALENDAR CLERK Notes: (Same as: Zofran) MEDICATION WASTE Product Size: 4 mgProduct Was angela: ___ mg Start Date: 10/11/18 Stop Date: 10/12/18 Status: Discontinued oxytocin 30 units in NS 500ml (Titrate) IV 30 unit 30 unit, 500 mL, Rate: 42 ml/hr, Infuse over: 11.9 hr, Dosing Weight 65.455, kg, Route: IV, Total Volume: 500 mL, Start date: 10/12/18 18:41:00 COURTROOM DEPUTY OR CALENDAR CLERK, Duration: 2 day, Stop date: 10/14/18 18:40:00 COURTROOM DEPUTY OR CALENDAR CLERK, Replace Every: 11.9 hr Start Date: 10/12/18 Stop Date: 10/14/18 Status: Discontinued oxytocin 30 units in NS 500ml (Titrate) IV 30 unit 30 unit, 500 mL, Rate: Titrate, Dosing Weight 65.455, kg, Route: IV, Total Volum e: 500 mL, Start date: 10/12/18 6:34:00 COURTROOM DEPUTY OR CALENDAR CLERK, Duration: 2 day, Stop date: 9 6:33:00 COURTROOM DEPUTY OR CALENDAR CLERK, Replace Every: 24 hr Start Date: 10/12/18 Stop Date: 10/12/18 Status: Discontinued oxytocin 30 units in NS 500ml (Titrate) IV 30 unit 30 unit, 500 mL, Rate: 42 ml/hr, Infuse over: 11.9 hr, Dosing Weight 65.455, kg, Route: IV, Total Volume: 500 mL, Start date: 10/11/18 18:34:00 COURTROOM DEPUTY OR CALENDAR CLERK, Duration: 2 day, Stop date: 10/13/18 18:33:00 COURTROOM DEPUTY OR CALENDAR CLERK, Replace Every: 11.9 hr Start Date: 10/11/18 Stop Date: 10/12/18 Status: Discontinued penicillin G potassium 2,500,000 unit, 50 mL, Route: IVPB, Drug form: INJ, ABXQ4H, Dosing Weight 65.455 , kg, Start date: 10/11/18 23:00:00 COURTROOM DEPUTY OR CALENDAR CLERK, Duration: 30 day, Stop date: 11/10/18 1 9:00:00 COURTROOM DEPUTY OR CALENDAR CLERK Start Date: 10/11/18 Stop Date: 10/12/18 Status: Discontinued penicillin G potassium 5,000,000 units injection + Sodium Chloride 0.9% IV 100 m L 5,000,000 unit, Route: IVPB, ONCALL, Dosing Weight 65.455, kg, Start date: 10/11 19:00:00 COURTROOM DEPUTY OR CALENDAR CLERK, Duration: 30 day, Stop date: 11/10/18 18:59:00 COURTROOM DEPUTY OR CALENDAR CLERK Notes: (Same as: Renetta) MEDICATION WASTE Product Size: 5,000,000 un itProduct Wasted: ___ unit Start Date: 10/11/18 Stop Date: 10/11/18 Status: Completed PNV-Total oral capsule 1 cap, PO, Daily, 0 Refill(s) Start Date: 10/11/18 Stop Date: 10/14/18 Status: Discontinued Multivitamins oral tablet 1 tab, Route: PO, Drug Form: TAB, Dosing Weight 65.455, kg, Daily, Start date: 0 10/13/18 9:00:00 COURTROOM DEPUTY OR CALENDAR CLERK, Duration: 30 day, Stop date: 11/11/18 9:00:00 COURTROOM DEPUTY OR CALENDAR CLERK Start Date: 10/13/18 Stop Date: 10/14/18 Status: Discontinued Remove - dinoprostone (Cervidil) insert 1 ea, Route: VAG, Drug Form: INS, Dosing Weight 65.455, kg, ONCALL, Start date: 10/12/18 8:00:00 COURTROOM DEPUTY OR CALENDAR CLERK, Duration: 30 day, Stop date: 11/11/18 7:59:00 COURTROOM DEPUTY OR CALENDAR CLERK Notes: Vaginal insert: to be removed 1 hour prior to oxytocin administration or 12 hours after insertion. Start Date: 10/12/18 Stop Date: 10/12/18 Status: Discontinued terbutaline 0.25 mg, 0.25 mL, Route: SUB-Q, Drug form: INJ, PRN, Dosing Weight 65.455, kg, P RN Other -See Comment, Start date: 10/11/18 18:34:00 COURTROOM DEPUTY OR CALENDAR CLERK, Duration: 1 doses or t imes, Stop date: Limited # of times Notes: DO NOT USE IN SENIOR FUNCTIONAL ANALYST AREA(Same As: Robert) Start Date: 10/11/18 Stop Date: 10/12/18 Status: Discontinued zolpidem 5 mg, 1 tab, Route: PO, Drug form: TAB, Bedtime, Dosing Weight 65.455, kg, PRN S leep, Start date: 10/12/18 18:41:00 COURTROOM DEPUTY OR CALENDAR CLERK, Duration: 30 day, Stop date: 11/11/18 1 8:40:00 COURTROOM DEPUTY OR CALENDAR CLERK Notes: (Same As: Ronny) Start Date: 10/12/18 Stop Date: 10/14/18 Status: Discontinued Results BLOOD BANK RESULTS Most recent to 1 2 oldest [Reference Range]: ABO/Rh A POS *Unknown* (10/11/18 7:26 PM) Antibody Scrn Negative (10/11/18 7:26 PM) Rhig Reqd See Note 1 (10/11/18 7:26 PM) 1Result Comment: 10/11/2018 21:05 [id number] This patient is not a candidate for Rh(O)D immune globulin. IMMUNOLOGY Most recent to 1 2 oldest [Reference Range]: Treponemal Ab Non-Reactive [Non-Reactive] *NA* (10/11/18 7:26 PM) HIV. [Negative] Negative *NA* (10/11/18 7:26 PM) Hep Bs Ag [Negative] Negative *NA* (10/11/18 7:26 PM) HEMATOLOGY Most recent to 1 2 oldest [Reference Range]: WBC [3.7-10.4 K/CMM] 9.7 K/CMM (10/11/18 7:26 PM) RBC [4.20-5.40 4.34 M/CMM M/CMM] (10/11/18 7:26 PM) Hgb [12.0-16.0 g/dL] 9.0 g/dL 11.9 g/dL *LOW* *LOW* (10/13/18 6:00 AM) (10/11/18 7:26 PM) Hct [36.0-48.0 %] 27.6 % 36.2 % *LOW* (10/11/18 7:26 PM) (10/13/18 6:00 AM) MCV [80.0-98.0 fL] 83.4 fL (10/11/18 7:26 PM) MCH [27.0-31.0 pg] 27.3 pg (10/11/18 7:26 PM) MCHC [32.0-36.0 32.8 g/dL g/dL] (10/11/18 7:26 PM) RDW [11.5-14.5 %] 22.5 % *HI* (10/11/18 7:26 PM) MPV [7.4-10.4 fL] 10.2 fL (10/11/18 7:26 PM) Platelet [133-450 201 K/CMM K/CMM] (10/11/18 7:26 PM) Segs [45.0-75.0 %] 71.4 % (10/11/18 7:26 PM) Lymphocytes 19.3 % [20.0-40.0 %] *LOW* (10/11/18 7:26 PM) Monocytes [2.0-12.0 5.8 % %] (10/11/18 7:26 PM) Eosinophils [0.0-4.0 2.5 % %] (10/11/18 7:26 PM) Basophils [0.0-1.0 1.0 % %] (10/11/18 7:26 PM) Neutrophils # 6.9 K/CMM [1.5-8.1 K/CMM] (10/11/18 7:26 PM) Lymphocytes # 1.9 K/CMM [1.0-5.5 K/CMM] (10/11/18 7:26 PM) Monocytes # [0.0-0.8 0.6 K/CMM K/CMM] (10/11/18 7:26 PM) Eosinophils # 0.2 K/CMM [0.0-0.5 K/CMM] (10/11/18 7:26 PM) Basophils # [0.0-0.2 0.1 K/CMM K/CMM] (10/11/18 7:26 PM) Immunizations Given and Recorded Vaccine Date Status [...] No entered on: 10/11/18 Assessment and Plan Extracted from: Title: Admission History and Author: Rosetta Epstein MD Date: 10/11/18 Physical Exam Impression and Plan Diagnosis 39 weeks gestation of ([id number] Z3A.39, Working, Medical). Carrier of group B Streptococcus ([id number] Z22.330, Working, Medical). condition: Stable. Maternal condition: Stable. Plan Admit. Primary MD gave orders records reviewed All questions answered PCN G for GBBS prophlaxis
[2019-01-06] MEDS ORDERED: CEFTRIAXONE SOD 1 GM VIAL IM ONE (02:30)
[2019-01-06] MEDS ORDERED: ACETAMINOPHEN 325 MG TAB PO ONE (02:30)
[2019-01-06] MEDS ORDERED: IBUPROFEN 600 MG TAB PO STA (03:36)
[2019-01-06 03:39] VITALS: BP 118/71
== END 2019-01-06 03:30 | disposition home or self-care (01) ==
LOC: FSED 02:01
DX: R50.9 Fever, unspecified (principal); R05 Cough; J20.9 Acute bronchitis, unspecified; J06.9 Acute upper respiratory infection, unspecified
CPT/HCPCS: 83518; 87400; 96372; 99283